=== PATIENT | female | born 1950 | race Caucasian/White ===

== ENCOUNTER 2017-07-01 10:15 | Observation (INO) ==
[2017-07-01] MEDS ORDERED: MECLIZINE 25 MG TABLET PO ONE (10:43)
[2017-07-01] MEDS ORDERED: NS 1,000 ML IV ONE (10:43)
[2017-07-01] MEDS ORDERED: ONDANSETRON 4 MG/2 ML INJECTION IVP ONE (10:43)
[2017-07-01] MEDS ORDERED: SALINE FLUSH 10ml SYRINGE IVF PRN (10:43)
--- NOTE | 2017-07-01 10:48 | Emergency Department Report ---
Dizziness HPI - General Chief Complaint: Dizziness Stated Complaint: dizzy/nausea Time Seen by Provider: 07/01/17 10:16 Source: patient Mode of arrival: ambulatory Limitations: no limitations - History of Present Illness HPI Narrative: Patient presents to emergency room today for evaluation of weakness, dizziness and nausea. Patient had a heart catheterization with stent placement on 06/12/[address] Wiggins. Since that time she had felt more short of breath and weak. She reports starting last 06/28. She has had onset of vertigo with nausea that has been severe in nature debilitating. She was seen by outpatient physical therapy and underwent Hallpike maneuver both and Sunday which cause symptoms to significantly worsen causing emesis. Today she fell. She was minimally improved, however, overall felt weak. Today she got up out of bed and continued to have weakness felt that she was can have a syncopal episode. She has been on 5 days of Lasix 40 milligrams daily for diuresis seen and questions if she is dehydrated. During all of this time. She has not had any episodes of chest pain but has had dizziness, shortness of breath and general fatigue. MD complaint: dizziness, lightheadedness Onset (ago): week(s) (3) Timing: gradual onset Description: lightheadedness, near-syncope History of similar episodes: No History of trauma: No Severity: moderate Relieving factors: rest Exacerbating factors: movement, position Associated symptoms: shortness of breath, nausea, vomiting - Related Data Home Medications Medication Instructions Recorded Confirmed Ascorbic Acid [Vitamin C] 500 mg PO DAILY #0 10/25/10 07/01/17 Infliximab [Remicade] 800 mg IV Q 4 WEEKS #0 10/25/10 07/01/17 Aspirin [Aspir 81] 81 mg PO HS #0 05/22/13 07/01/17 Ibuprofen [Motrin Ib] 400 mg PO Q4H PRN #0 05/22/13 07/01/17 Lisinopril/Hctz [Prinzide 1 tab PO DAILY #0 05/22/13 07/01/17] metHOTREXate sodium [Methotrexate] 15 mg PO WEEKLY #0 05/22/13 07/01/17 Atorvastatin [Lipitor] 5 mg PO HS 06/12/17 07/01/17 Fexofenadine/Pseudoephedrine 1 tab PO DAILY 06/12/17 07/01/17 [Irene-D 24 Hour Tablet] Fluoxetine HCl [Prozac] 40 mg PO DAILY 06/12/17 07/01/17 Metoprolol Tartrate [Lopressor] 25 mg PO BIDWM 06/12/17 07/01/17 Naproxen Sodium 440 mg PO HS 06/12/17 07/01/17 SUMAtriptan succinate [Sumatriptan 50 mg PO BID PRN 06/12/17 07/01/17 Succinate] Trazodone [Desyrel] 50 - 100 mg PO HS 06/12/17 07/01/17 Vitamin A 800 unit PO DAILY 06/12/17 07/01/17 Vitamin E 400 unit PO DAILY 06/12/17 07/01/17 Loperamide HCl/Simethicone 0.5 tab PO DAILY 06/19/17 07/01/17 [Imodium Multi-Symptom Rel Cplt] Cholecalciferol (Vitamin D3) 2,000 unit PO DAILY 07/01/17 07/01/17 [Vitamin D3] Folic Acid 0.8 mg PO DAILY 07/01/17 07/01/17 Naproxen Sodium [Aleve] 440 mg PO BID PRN 07/01/17 07/01/17 Vitamin B Complex Vit C No.4 150 mg PO DAILY 07/01/17 07/01/17 [Super B Complex] Previous Rx's Medication Instructions Recorded Ticagrelor [Brilinta] 90 mg PO Q12HR #180 tab 06/13/17 Allergies Allergy/AdvReac Type Severity Reaction Status Date / Time Sulfa (Sulfonamide Allergy Unknown Rash Verified 07/01/17 10:26 Antibiotics) amoxicillin [From Augmentin] Allergy Diarrhea Verified 07/01/17 10:26 clavulanic acid Allergy Diarrhea Verified 07/01/17 10:26 [From Augmentin] acetaminophen AdvReac Unknown HEADACHE Verified 07/01/17 10:26 codeine AdvReac Unknown Headache Verified 07/01/17 10:26 guaifenesin AdvReac Unknown Anxiety Verified 07/01/17 10:26 mirtazapine AdvReac Unknown Dizziness Verified 07/01/17 10:26 vortioxetine AdvReac Unknown Nausea Verified 07/01/17 10:26 pseudoephedrine HCl Allergy Unknown Uncoded 06/12/17 06:50 amoxicillin trihydrate AdvReac Unknown Uncoded 06/12/17 06:50 hydrocodone bit AdvReac Unknown HEADACHE Uncoded 06/12/17 06:50 potassium clavulanate AdvReac Unknown Uncoded 06/12/17 06:50 Review of Systems All systems: reviewed and negative except as stated Respiratory: Reports: other (feels short of breath) Gastrointestinal: Reports: nausea Neurological: Reports: weakness, vertigo PFSH Patient Stated Medical History Migraine Yes Hearing Loss bilat hearing aids Cardiac Arrhythmia Yes Hypertension Yes Bronchitis Yes Pneumonia Yes Hx Urinary Tract Infection Yes Other bladder repair Other Musculoskeletal rheumatoid arthritis Clostridium Difficile Yes Sepsis Yes Depression Yes Endometriosis Yes CAD wtih cardiac stent placement 06/12/17- Dr Wiggins Dyslipidemia. Irritable bowel syndrome. Rheumatoid arthritis Surgical History: Heart cath with cardiac stent placement-06/12/17-Dr. Wiggins. Total hysterectomy. Cholecystectomy. Abdominal lap 2. D&C. Right hip replacement-2010. Lumbar spinal fusion Family History: Mother had coronary artery disease Father-hypertension, of motor vehicle accident - Social History Smoking status: Former smoker Physical Exam - Limitations Limitations: no limitations - General General appearance: alert - Normal Exams: Head:: Normocephalic without trauma Eyes:: Pupils are PERRLA w/ EOMI, No scleral icterus, irritation, or foreign bodies noted Neck:: Full range of motion, without adenopathy Chest/Respirations:: Clear all estrada, with good airflow, and symmetry bilaterally Cardiovascular:: Regular rate and rhythm, without murmur or gallop Abdomen:: Bowel sounds positive, soft, non-tender, non-distended Lymphatic:: No lymphadenopathy Musculoskeletal:: No tenderness, good range of motion Integumentary:: No rashes Neurological:: Patient is alert, and oriented, cranial nerves, motor/sensory/ cerebellar Psychiatric:: Patient exhibits, appropriate attention, emotion and affect Course - Consultations Consultation #1: Sachin Time: 12:45 Vital Signs Temperature 97.8 F 07/01/17 10:27 Pulse Rate 84 07/01/17 10:27 Respiratory Rate 19 07/01/17 10:27 Blood Pressure 120/60 07/01/17 10:27 Pulse Oximetry 97 07/01/17 10:27 Temperature 97.8 F 07/01/17 10:27 Pulse Rate 78 07/01/17 11:05 Respiratory Rate 19 07/01/17 10:27 Blood Pressure 104/60 07/01/17 11:05 Pulse Oximetry 97 07/01/17 10:27 Dizziness - MDM Narrative Medical decision making narrative: 1230- CT results revele bilateral lower lobe pulmonary emboli 1245- Spoke with Hospitalist Dr Stephenson regarding hypokalemia, acute kidney injury, bilateral pulmonary emboli. She accepts patient for outpatient observation. Will initiate anticoagulation, Lovenox 1 milligram per kilogram subcutaneous 1 now. Given 1 liter of NS. #2 NS with potassium, potassium 40 meq PO while in ER. Plan discussed with patient and son. - Medical Records Attestation: I reviewed the patient's medical records. - Lab Data Attestation: I reviewed the patient's lab results. Result diagrams: 07/01/17 10:38 07/01/17 10:38 Lab Results 07/01/17 07/01/17 07/01/17 Range/Units 10:38 10:38 10:38 WBC 6.3 (4.5-11.0) T/MM3 RBC 4.39 (4.00-5.20) M/MM3 Hgb 14.7 (12-16) GM/DL Hct 42.8 (36-46) % MCV 97.5 (80-100) UM3 MCH 33.5 (26-34) UUG MCHC 34.3 (31-37) GM/DL RDW Std Deviation 41.9 (36.9-50.2) FL Plt Count 204 (130-400) T/MM3 MPV 10.6 (9.4-12.4) UM3 Neutrophils % (Manual) 41.0 (33-66) % Lymphocytes % (Manual) 38.0 (23-45) % Reactive Lymphs % 1.0 H (0-0) % Monocytes % (Manual) 15.0 H (0-9.0) % Eosinophils % (Manual) 5.0 H (0-4) % Neutrophils # (Manual) 2.6 (1.8-7.7) T/MM3 Lymphocytes # (Manual) 2.4 (1-4.8) T/MM3 Abs React Lymphs (Man) 0.1 H (0-0) T/MM3 Monocytes # (Manual) 0.9 H (0-0.8) T/MM3 Eosinophils # (Manual) 0.3 (0-0.5) T/MM3 RBC Morph Comment Normal D-Dimer 288 H (0-230) NG/ML Turbidity < 20 (0-20) Sodium 141 (134-144) MEQ/L Potassium 3.1 L (3.6-5) MEQ/L Chloride 95 L (98-107) MEQ/L Carbon Dioxide 32 H (22-30) MEQ/L Anion Gap 14 (5-15) MEQ/L BUN 44.0 H (7-17) MG/DL Creatinine 1.5 H (0.7-1.2) MG/DL GFR Calculation 35 BUN/Creatinine Ratio 29 H (6-26) RATIO Glucose 115 H (65-110) MG/DL Calculated Osmolality 283 H (261-280) MOSM/KG Calcium 9.9 (8.4-10.2) MG/DL Total Bilirubin 1.00 (0.20-1.30) MG/DL Icterus Index < 2 (0-7) AST 40 H (14-36) U/L ALT 58 H (9-52) U/L Alkaline Phosphatase 47 (38-126) U/L Troponin I < 0.012 (0-0.12) ng/ml Total Protein 7.6 (6.3-8.2) G/DL Albumin 4.4 (3.5-5.0) G/DL Globulin 3.2 (2.4-3.6) G/DL Albumin/Globulin Ratio 1.4 (1.1-2.2) RATIO Specimen Hemolysis < 15 (0-25) - Radiology Data Attestation: I reviewed the patient's radiology results. Bilateral lower lobe pulmonary emboli Disposition Disposition: [facility] [place] Condition: Stable Prescriptions: No Action metHOTREXate sodium [Methotrexate] 15 mg PO WEEKLY #0 Lisinopril/Hctz 20/25 [Prinzide 20/25] 1 tab PO DAILY #0 Aspirin [Aspir 81] 81 mg PO HS #0 Ibuprofen [Motrin Ib] 400 mg PO Q4H PRN #0 PRN Reason: pain Vitamin A 800 unit PO DAILY Trazodone [Desyrel] 50 - 100 mg PO HS Fluoxetine HCl [Prozac] 40 mg PO DAILY Metoprolol Tartrate [Lopressor] 25 mg PO BIDWM Atorvastatin [Lipitor] 5 mg PO HS Fexofenadine/Pseudoephedrine [Irene-D 24 Hour Tablet] 1 tab PO DAILY Ticagrelor [Brilinta] 90 mg PO Q12HR #180 tab Loperamide HCl/Simethicone [Imodium Multi-Symptom Rel Cplt] 0.5 tab PO DAILY Vitamin B Complex Vit C No.4 [Super B Complex] 150 mg PO DAILY Cholecalciferol (Vitamin D3) [Vitamin D3] 2,000 unit PO DAILY Naproxen Sodium [Aleve] 440 mg PO BID PRN PRN Reason: Pain Ascorbic Acid [Vitamin C] 500 mg PO DAILY #0 Infliximab [Remicade] 800 mg IV Q 4 WEEKS #0 Vitamin E 400 unit PO DAILY SUMAtriptan succinate [Sumatriptan Succinate] 50 mg PO BID PRN PRN Reason: Migraine Headache Naproxen Sodium 440 mg PO HS Folic Acid 0.8 mg PO DAILY Referrals: Sarmad Tan MD [Family Provider] - - Seen By: shravan
[2017-07-01] MEDS ORDERED: NS 100 ML ONE (11:38)
[2017-07-01] MEDS ORDERED: IOHEXOL 350mg/ml 75ml INJECTION ONE (11:38)
[2017-07-01] MEDS ORDERED: SALINE FLUSH 10ml SYRINGE ONE (11:38)
[2017-07-01] MEDS: POTASSIUM CHLORIDE INJ 10 MEQ in NS 1,000 ML IV SCH ×2 (12:46→14:01)
[2017-07-01] MEDS ORDERED: ENOXAPARIN 100 MG/ML INJECTION SQ ONE (12:54)
[2017-07-01] MEDS ORDERED: MECLIZINE 25 MG PO PRN (13:37)
[2017-07-01 13:38] VITALS: BMI 35.4
--- NOTE | 2017-07-01 13:44 | History & Physical Report ---
<Aline Meadows - Last Filed: 07/01/17 14:04> History of Present Illness Date: 07/01/17 Chief complaint: Dizziness HPI: HPI Narrative: (ED) Patient presents to emergency room today for evaluation of weakness, dizziness and nausea. Patient had a heart catheterization with stent placement on 06/12/[address] Wiggins. Since that time she had felt more short of breath and weak. She reports starting last 06/28. She has had onset of vertigo with nausea that has been severe in nature debilitating. She was seen by outpatient physical therapy and underwent Hallpike maneuver both and Sunday which cause symptoms to significantly worsen causing emesis. Today she fell. She was minimally improved, however, overall felt weak. Today she got up out of bed and continued to have weakness felt that she was can have a syncopal episode. She has been on 5 days of Lasix 40 milligrams daily for diuresis seen and questions if she is dehydrated. During all of this time. She has not had any episodes of chest pain but has had dizziness, shortness of breath and general fatigue. HPI Hospitalist: Nubia is a very pleasant 66 yo WF who recently underwent a heart cath with LAD stent placement. She reports that post the procedure, she felt more fatigued than normal, but attributed that to the procedure. She did develop worsening SOA, worse with activity. Upon return to work, she noticed that she did have some chest discomfort- she attributed that to being fatigued. On , she developed fairly severe vertigo while lying in bed. She has a prior history of vertigo, but never this severe. She was told in the past that she has plaque in a vessel at the back of her neck. During prior vertigo events, she visited PT with resolution of her symptoms. She decided to go to PT, and underwent treatment both and Sunday with worsening of her symptoms and vomiting. She has continued to feel SOA, dizzy, and overall NFW.She does report some mild posterior neck tension and tenderness, which has been present in the past and not worsened in severity. She did receive 5 days of Lasix due to symptoms, which made her feel worse as detailed above. Due to ongoing sx, she presented to the ED and was found to have bilateral PE. She reports that she has no prior history of DVT or PE. She does endorse some gait instability with the vertigo. Father has history of cerebellar dysfunction , and cerebellar bleed post MVA. She denies any estrogen supplementation or nutritional supplements for HRT. She is not a smoker. 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 Review of Systems All systems PM: 10-point ROS was reviewed, no additional remarkable complaints except - Constitutional Constitutional: Present: fatigue - EENMT Eyes: Absent: change in vision, loss of vision Balance: Present: vertigo, ataxia - Cardiovascular Cardiovascular: Present: chest pain, dyspnea on exertion, as per HPI. Absent: palpitations, edema Vascular: Absent: pedal edema, unilateral swelling - Respiratory Respiratory: Present: dyspnea, dyspnea on exertion. Absent: cough - Gastrointestinal Gastrointestinal: Present: diarrhea (IBS-D), other (Reports history of gastric ulcers). Absent: abdominal pain - Genitourinary Menstruation: post hysterectomy - Musculoskeletal Musculoskeletal: Absent: joint swelling, limited range of motion - Neurological Neurological: Present: dizziness, lack of coordination, vertigo. Absent: loss of vision, paresthesias, sensory deficit - Psychiatric Psychiatric: Present: depression PFSH CAD HTN Hyperlipidemia IBS-D (past [facility]) RA- Dr. Pozo Migraine Arrhythmia, NOS Remote hx of C.Diff (1998) Skin CA Depression- Dr. Ma Surgical History: Heart cath with cardiac stent placement-06/12/17-Dr. Wiggins. Total hysterectomy. Cholecystectomy. Abdominal lap 2. D&C. Right hip replacement-2010. Lumbar spinal fusion Family History: HTN, Early CAD - Social History Smoking status: Former smoker Substance use type: does not use Current occupational status: employed Current residence: Apartment/Private Home Medications Home Medications Medication Instructions Recorded Confirmed Type Ascorbic Acid [Vitamin C] 500 mg PO DAILY #0 10/25/10 07/01/17 History Infliximab [Remicade] 800 mg IV Q 4 WEEKS #0 10/25/10 07/01/17 History Aspirin [Aspir 81] 81 mg PO HS #0 05/22/13 07/01/17 History Ibuprofen [Motrin Ib] 400 mg PO Q4H PRN #0 05/22/13 07/01/17 History Lisinopril/Hctz [Prinzide 1 tab PO DAILY #0 05/22/13 07/01/17 History 2025] metHOTREXate sodium [Methotrexate] 15 mg PO WEEKLY #0 05/22/13 07/01/17 History Atorvastatin [Lipitor] 5 mg PO HS 06/12/17 07/01/17 History Fexofenadine/Pseudoephedrine 1 tab PO DAILY 06/12/17 07/01/17 History [Irene-D 24 Hour Tablet] Fluoxetine HCl [Prozac] 40 mg PO DAILY 06/12/17 07/01/17 History Metoprolol Tartrate [Lopressor] 25 mg PO BIDWM 06/12/17 07/01/17 History Naproxen Sodium 440 mg PO HS 06/12/17 07/01/17 History SUMAtriptan succinate [Sumatriptan 50 mg PO BID PRN 06/12/17 07/01/17 History Succinate] Trazodone [Desyrel] 50 - 100 mg PO HS 06/12/17 07/01/17 History Vitamin A 800 unit PO DAILY 06/12/17 07/01/17 History Vitamin E 400 unit PO DAILY 06/12/17 07/01/17 History Loperamide HCl/Simethicone 0.5 tab PO DAILY 06/19/17 07/01/17 History [Imodium Multi-Symptom Rel Cplt] Cholecalciferol (Vitamin D3) 2,000 unit PO DAILY 07/01/17 07/01/17 History [Vitamin D3] Folic Acid 0.8 mg PO DAILY 07/01/17 07/01/17 History Naproxen Sodium [Aleve] 440 mg PO BID PRN 07/01/17 07/01/17 History Vitamin B Complex Vit C No.4 150 mg PO DAILY 07/01/17 07/01/17 History [Super B Complex] Allergies Allergy/AdvReac Type Severity Reaction Status Date / Time Sulfa (Sulfonamide Allergy Unknown Rash Verified 07/01/17 10:26 Antibiotics) amoxicillin [From Augmentin] Allergy Diarrhea Verified 07/01/17 10:26 clavulanic acid Allergy Diarrhea Verified 07/01/17 10:26 [From Augmentin] acetaminophen AdvReac Unknown HEADACHE Verified 07/01/17 10:26 codeine AdvReac Unknown Headache Verified 07/01/17 10:26 guaifenesin AdvReac Unknown Anxiety Verified 07/01/17 10:26 mirtazapine AdvReac Unknown Dizziness Verified 07/01/17 10:26 vortioxetine AdvReac Unknown Nausea Verified 07/01/17 10:26 pseudoephedrine HCl Allergy Unknown Uncoded 06/12/17 06:50 amoxicillin trihydrate AdvReac Unknown Uncoded 06/12/17 06:50 hydrocodone bit AdvReac Unknown HEADACHE Uncoded 06/12/17 06:50 potassium clavulanate AdvReac Unknown Uncoded 06/12/17 06:50 Exam Vital Signs: Temperature 97.8 F 07/01/17 10:27 Pulse Rate 64 07/01/17 13:00 Respiratory Rate 16 07/01/17 13:00 Blood Pressure 143/62 H 07/01/17 13:00 Pulse Oximetry 99 07/01/17 13:00 Height/Weight/BMI: Height 1.65 m Weight 96.6 kg Body Mass Index 35.4 - Constitutional Present: no acute distress, well nourished, well developed, average body habitus , cooperative - Routine HEENT Exam Head: Present: normocephalic, atraumatic Eye: Present: EOMI, PERRL. Absent: conjunctival icterus, scleral injection ENT: Present: mucous membranes moist, dentition normal - Routine Neck Exam Present: supple, full ROM. Absent: JVD, tenderness - Routine Respiratory Exam Present: CTA bilaterally. Absent: dyspnea, decreased breath sounds, rales, rhonchi, wheezes, crackles, distant breath sounds - Routine Cardiovascular Exam Present: RRR, S1, S2, no murmur - Routine Abdominal Exam Present: soft, normoactive bowel sounds, non distended, non tender - Routine Extremities Exam Present: no edema, non tender, full ROM, pulses intact. Absent: calf tenderness , Brnet's sign, tenderness - Routine Skin Exam Present: intact, dry, warm - Routine Neurological Exam Present: alert, oriented X3, CN II-XII intact, moving all extremities, nystagmus (Very mild on EOM exam), normal speech. Absent: altered mental status , abnormal gait, facial asymmetry - Routine Psychiatric Exam Present: normal affect, normal thought process, cooperative, good insight, good judgment Results - Labs CBC & Chem 7: 07/01/17 10:38 07/01/17 10:38 - Impressions CTA- Bilateral PE - Imaging and Cardiology Venous US Status: pending Additional comments: Preliminary- clear bilaterally. Assessment and Plan (1) Bilateral pulmonary embolism Current visit: Yes Status: Acute (2) H/O heart artery stent Current visit: Yes Status: Acute (3) Acute onset of severe vertigo Current visit: Yes Status: Acute DVT Prophylaxis: Lovenox, Eliquis GI Prophylaxis: other (PPI) Assessment and Plan: PCP: Raghu Tan Assessment: Bilateral PE S/P LAD stenting Acute onset severe vertigo CAD HLD HTN Unspec. Arrhythmia RA IBS Plan: H&P 07/01/17 *PE Venous doppler negative. Assess CT head, Echo as well. Will need full anticoagulation- I did talk to patient about the risks of triple therapy. Continue Brilinta, ASA given recent stent. Least risk of GI bleeding is Eliquis- D/W pt- she is in agreement. We will add low dose PPI for GI protection, which she understands. Consult Dr. Wiggins in AM due to recent cath. Will need 3-6 mo therapy- first event. Provoked. No family hx of clots. *Severe vertigo Will need to R/O cerebellar stroke. Get CT of head. Hold off on CTA of head/neck given elevated SCr. May need to consider if sx continue. *Dehydration/VERN/Hypokalemia Replace K, IVF. Follow labs *RA/Chronic pain D/W pt that she needs to hold NSAIDs fish oil, Vitamin E given increase in bleeding risk. We may be able to try Tramadol if pain is an issue. *HTN- Continue Metoprolol. Hold COREY/HCTZ for now. Monitor BP, SCr. D/W Pt at length. questions answered. D/W RN as well. Chart reviewed at length. - Time spent with patient Time with patient PN: 50 minutes Hospital Course Summary Disclaimer: The visit summary below is not to be considered part of the above Progress Note. Hospital Course: 07/01/17 14:29 Assessment: Bilateral PE S/P LAD stenting Acute onset severe vertigo CAD HLD HTN Unspec. Arrhythmia RA IBS Plan: H&P 07/01/17 *PE Venous doppler negative. Assess CT head, Echo as well. Will need full anticoagulation- I did talk to patient about the risks of triple therapy. Continue Brilinta, ASA given recent stent. Least risk of GI bleeding is Eliquis- D/W pt- she is in agreement. We will add low dose PPI for GI protection, which she understands. Consult Dr. Wiggins in AM due to recent cath. Will need 3-6 mo therapy- first event. Provoked. No family hx of clots. *Severe vertigo Will need to R/O cerebellar stroke. Get CT of head. Hold off on CTA of head/neck given elevated SCr. May need to consider if sx continue. *Dehydration/VERN/Hypokalemia Replace K, IVF. Follow labs *RA/Chronic pain D/W pt that she needs to hold NSAIDs fish oil, Vitamin E given increase in bleeding risk. We may be able to try Tramadol if pain is an issue. *HTN- Continue Metoprolol. Hold COREY/HCTZ for now. Monitor BP, SCr. D/W Pt at length. questions answered. D/W RN as well. Chart reviewed at length. <Meredith Stephenson - Last Filed: 07/01/17 15:40> History of Present Illness Date: 07/01/17 Exam Vital Signs: Temperature 97.8 F 07/01/17 13:37 Pulse Rate 68 07/01/17 13:37 Respiratory Rate 16 07/01/17 13:37 Blood Pressure 122/66 07/01/17 13:37 Pulse Oximetry 99 07/01/17 13:37 Height/Weight/BMI: Height 1.65 m Weight 96.6 kg Body Mass Index 35.4 Results - Labs CBC & Chem 7: 07/01/17 10:38 07/01/17 10:38 Assessment and Plan (1) Bilateral pulmonary embolism Current visit: Yes Status: Acute (2) H/O heart artery stent Current visit: Yes Status: Acute (3) Acute onset of severe vertigo Current visit: Yes Status: Acute Resuscitation Status: Full Code Assessment and Plan: I have independently evaluated and examined this patient. I reviewed the chart, the patient's history, and the [employer]/PA's documented findings as above. We discussed and formulated the assessment and plan as above with additions as below: Ms. Salmeron describes progressively increasing dyspnea following cardiac catheterization. She has not experienced pleuritic pain nor hemoptysis and denies swelling or pain in her lower extremities. Symptoms were not relieved by trial of diuretics. Dizziness with vertigo began occurring 2-3 days ago as noted. Patient describes past history of vertigo on 1 occasion successfully treated with physical therapy. Her neck symptoms are well controlled. Examination reveals patient to be alert and in no distress Respirations are nonlabored, good airflow, breath sounds clear Regular cardiac rhythm, S1-S2 Extremities without edema, calf soft, no cords palpable CTA chest reviewed by myself-no infiltrates or focal pulmonary abnormality, PE bilaterally per radiology report Venous Doppler-negative for DVT Laboratory data notable for hemoconcentration (hemoglobin 14.7 from 13.3 06/13) and elevated BUN/creatinine (18-44, 0.9-1.5 respectively 06/13-today) with hypokalemia and minor transaminitis-latter consistent with methotrexate use. Anticoagulation options reviewed with Nubia; novel agent to be initiated as described above. Continue fluids and potassium replacement. Discussed with Tameka Zapata APRN, old record reviewed, imaging reviewed by myself. Hospital Course Summary Disclaimer: The visit summary below is not to be considered part of the above Progress Note.
[2017-07-01] MEDS: NS with KCL 20 mEq 1,000 ML IV SCH ×2 (13:53→23:49)
[2017-07-01] MEDS ORDERED: SUMATRIPTAN 25 MG TABLET PO PRN (15:28)
[2017-07-01] MEDS: TICAGRELOR 90 MG PO SCH (20:51)
[2017-07-01] MEDS ORDERED: ASPIRIN *EC* 81 MG TABLET PO SCH (21:00)
[2017-07-01] MEDS ORDERED: ATORVASTATIN 10 MG TABLET PO SCH (21:00)
[2017-07-01] MEDS ORDERED: TRAZODONE 50 MG PO PRN (21:00)
[2017-07-02] MEDS ORDERED: MORPHINE SULFATE 10 MG SYRINGE IV PRN (04:12)
[2017-07-02] MEDS ORDERED: OMEPRAZOLE 20 MG CAPSULE PO SCH (06:30)
[2017-07-02] MEDS ORDERED: MORPHINE SULFATE 2 MG SYRINGE IVP PRN (06:30)
--- NOTE | 2017-07-02 07:29 | Ultrasound Report ---
Indication: Known PE PROCEDURE: US venous doppler LE BI: Encounter: Initial Comparison: None Technique: Color Doppler duplex and grayscale sonographic imaging of both lower extremities was performed. Findings: There is no evidence for acute deep venous thrombosis in either thigh. Specifically, serial graded compression was performed from the inguinal ligament to the popliteal bifurcation, bilaterally, demonstrating appropriate compressibility of the deep venous system. In addition, color and pulsed Doppler demonstrate appropriate spontaneous flow, variation with respiration, and augmentation with calf compression. At the ankle, normal flow is identified in the posterior tibial veins; these vessels are also normal in caliber. Impression: No evidence of acute DVT in either lower limb. There is a preliminary report by [facility]. .
--- NOTE | 2017-07-02 07:30 | CT Scan Report ---
Indication: PE, R/O Stroke PROCEDURE: CT head/brain wo con: Encounter: Initial Comparison: February 02, 2014 Technique: Axial CT images through the head were performed without contrast. Iterative Reconstruction dose reducing technique was utilized. FINDINGS: The ventricles are of normal size, shape, and contour for the patient's age. There are scattered areas of low attenuation in the white matter which most likely represent changes from chronic microvascular ischemia. The brainstem, cerebellum, and cerebral hemispheres otherwise have a normal morphology and CT attenuation. There is no evidence of midline displacement. No hemorrhage, signs of acute territorial stroke, mass effect, mass lesions, or edema is evident. The visualized portions of the skull base, midface, and calvarium demonstrate no abnormality. The paranasal sinuses are well aerated and free of significant disease. Small right mastoid effusion. IMPRESSION: No acute intracranial abnormality or hemorrhage. There is a preliminary report by [facility]. .
[2017-07-02 08:20] VITALS: RESP 16
[2017-07-02] MEDS: TICAGRELOR 90 MG PO SCH (08:23)
[2017-07-02] MEDS ORDERED: APIXABAN 5 MG TABLET PO SCH (09:00)
[2017-07-02] MEDS ORDERED: NON-FORMULARY MEDICATION 1 EACH EACH (Fluoxetine Hcl [Prozac] 40 MG) PO SCH (09:00)
[2017-07-02] MEDS ORDERED: FLUOXETINE 40 MG PO SCH (09:00)
--- NOTE | 2017-07-02 09:07 | CT Scan Report ---
Indication: shortness of breath, elevated D-dimer PROCEDURE: CT angio pulm emboli: Encounter: Initial Comparison: None Technique: Axial CT pulmonary angiographic phase images were performed through the chest after the administration of intravenous contrast. Coronal and Sagittal MIP reconstructed images were created and reviewed. Automated Exposure Control and Iterative Reconstruction dose reducing techniques were utilized. Contrast: Omnipaque 350 74 mL Findings: Pulmonary arteries: Exam is diagnostic to the subsegmental pulmonary arterial level. There is segmental and subsegmental pulmonary embolus in the left lower lobe. There are also subsegmental emboli in the medial right lower lobe. Other findings: Mild degenerative atelectasis. No pneumothorax, pleural effusion or pneumonia. The central airways are patent. No axillary or mediastinal adenopathy. Heart size is normal. The upper abdomen shows no acute findings. Impression: Bilateral pulmonary emboli as above. There is a preliminary report by [facility]. .
--- NOTE | 2017-07-02 10:01 | Progress Note ---
<[place] - Last Filed: 07/02/17 09:58> Subjective: Patient is seen lying in her bed. She states that she is fatigued. She had some chest heaviness at 4 AM. An EKG was performed at that time showing no acute changes. She states she was not having significant pain, but took the morphine the tele-doctor had ordered and went back to sleep. She states she's had no further chest pain/heaviness. She is somewhat short of air when she is up and moving around. Occasionally when she is resting she will feel the need to take a deep breath. No further vomiting. She ate a good breakfast. She has had an echocardiogram, but results are still pending. We discussed the CT of her head was negative and labs look better today. Objective Vital signs: Temperature 97.7 F 07/02/17 00:00 Pulse Rate 71 07/02/17 08:19 Respiratory Rate 16 07/02/17 08:19 Blood Pressure 121/63 07/02/17 08:19 Pulse Oximetry 96 07/02/17 08:19 Height/Weight/BMI: Height 1.65 m Weight 97.4 kg Body Mass Index 35.4 - Constitutional Present: no acute distress, well nourished, well developed - Routine Respiratory Exam Present: CTA bilaterally. Absent: wheezes - Routine Cardiovascular Exam Present: RRR, S1, S2. Absent: murmur - Routine Abdominal Exam Present: soft, normoactive bowel sounds, non distended. Absent: tenderness - Routine Extremities Exam Present: no edema, normal capillary refill - Routine Skin Exam Present: dry, warm - Routine Neurological Exam Present: alert, oriented X3 - Routine Lymphatic Exam Lymphatic: Absent: adenopathy - Routine Psychiatric Exam Present: normal affect, normal thought process, cooperative Results - Labs CBC & Chem 7: 07/02/17 03:57 07/02/17 03:57 - Imaging and Cardiology Venous US Additional comments: Impression: No evidence of acute DVT in either lower limb. CT scan - head Additional comments: IMPRESSION: No acute intracranial abnormality or hemorrhage. CTA chest Additional comments: Findings: Pulmonary arteries: Exam is diagnostic to the subsegmental pulmonary arterial level. There is segmental and subsegmental pulmonary embolus in the left lower lobe. There are also subsegmental emboli in the medial right lower lobe. Other findings: Mild degenerative atelectasis. No pneumothorax, pleural effusion or pneumonia. The central airways are patent. No axillary or mediastinal adenopathy. Heart size is normal. The upper abdomen shows no acute findings. Impression: Bilateral pulmonary emboli as above. Assessment and Plan (1) Bilateral pulmonary embolism Current visit: Yes Status: Acute (2) H/O heart artery stent Current visit: Yes Status: Acute (3) Acute onset of severe vertigo Current visit: Yes Status: Acute Assessment and Plan: Assessment: Bilateral PE S/P LAD stenting Acute onset severe vertigo CAD HLD HTN Unspec. Arrhythmia RA IBS Plan: Check troponin given the chest heaviness she had at 4 AM. Will await recommendation of Dr. Wiggins. Continue IV fluids for now. If taking p.o. well, can DC later today. OK to hold COREY/HCTZ today yet as BP is stable. Continue Brillinta, Eliquis and ASA. Hospital Course Summary Disclaimer: The visit summary below is not to be considered part of the above Progress Note. Hospital Course: Assessment: Bilateral PE S/P LAD stenting Acute onset severe vertigo CAD HLD HTN Unspec. Arrhythmia RA IBS Plan: H&P 07/01/[address] Venous doppler negative. Assess CT head, Echo as well. Will need full anticoagulation- I did talk to patient about the risks of triple therapy. Continue Brilinta, ASA given recent stent. Least risk of GI bleeding is Eliquis- D/W pt- she is in agreement. We will add low dose PPI for GI protection, which she understands. Consult Dr. Wiggins in AM due to recent cath. Will need 3-6 mo therapy- first event. Provoked. No family hx of clots. Will need to R/O cerebellar stroke. Get CT of head. Hold off on CTA of head/neck given elevated SCr. May need to consider if sx continue. Replace K, IVF. Follow labs D/W pt that she needs to hold NSAIDs fish oil, Vitamin E given increase in bleeding risk. We may be able to try Tramadol if pain is an issue. Continue Metoprolol. Hold COREY/HCTZ for now. Monitor BP, SCr. 07/02/17 Check troponin given the chest heaviness she had at 4 AM. Will await recommendation of Dr. Wiggins. Continue IV fluids for now. If taking p.o. well, can DC later today. OK to hold COREY/HCTZ today yet as BP is stable. Continue Brillinta, Eliquis and ASA. <Meredith Stephenson - Last Filed: 07/02/17 13:30> Objective Vital signs: Temperature 97.7 F 07/02/17 00:00 Pulse Rate 71 07/02/17 08:19 Respiratory Rate 16 07/02/17 08:19 Blood Pressure 121/63 07/02/17 08:19 Pulse Oximetry 96 07/02/17 08:19 Height/Weight/BMI: Height 1.65 m Weight 97.4 kg Body Mass Index 35.4 Results - Labs CBC & Chem 7: 07/02/17 03:57 07/02/17 03:57 Assessment and Plan (1) Bilateral pulmonary embolism Current visit: Yes Status: Acute (2) H/O heart artery stent Current visit: Yes Status: Acute (3) Acute onset of severe vertigo Current visit: Yes Status: Chronic GI Prophylaxis: other (omeprazole) Resuscitation Status: Full Code Assessment and Plan: I have independently evaluated and examined this patient. I reviewed the chart, the patient's history, and the [employer] MAN/PA's documented findings as above. We discussed and formulated the assessment and plan as above with additions as below: Nubia describes pressure-like left precordial chest pain overnight as noted- she reports she has this intermittently and that sometimes it's on the right. Typically resolves after short period of time. No associated cardiac symptoms and she denies reflux/heartburn. No pleuritic pain today. NAD, alert Respirations nonlabored, good airflow, breath sounds clear Regular rhythm EKG reviewed by myself-sinus arrhythmia but no acute ST/T-wave changes Discussed with cardiology-echocardiogram pending Renal function/potassium have normalized Anticipate discharge later today barring further cardiac testing. Hospital Course Summary Disclaimer: The visit summary below is not to be considered part of the above Progress Note.
--- NOTE | 2017-07-02 12:51 | Cardiology Consult Note ---
History of Present Illness Consult date: 07/01/17 <Isamar Donaldson - 07/02/17 13:09> Requesting physician: Meredith Stephenson <Isamar Donaldson - 07/02/17 13:09> Chief complaint: dizziness <Isamar Donaldson - 07/02/17 13:09> History of present illness: Nubia is a 66 year old female who is well known to Dr. Wiggins who has a history of CAD with recent heart cath with LAD stent placement, PVCs, pulmonary hypertension, HTN and HLD. She reported that post procedure, she felt more fatigued than normal, but attributed that to the procedure. She did develop worsening SOA, worse with activity which she attributed to Brilinta (SOA is a known side effect which usually resolves the first week it is taken). Upon return to work, she noticed that she did have some chest discomfort- she attributed that to being fatigued. On , she developed fairly severe vertigo while lying in bed. She has a prior history of vertigo, but never this severe. She was told in the past that she has plaque in a vessel at the back of her neck. During prior vertigo events, she visited PT with resolution of her symptoms. She decided to go to PT, and underwent treatment both and Sunday with worsening of her symptoms and vomiting. She has continued to feel SOA, dizzy, and overall NFW. She does report some mild posterior neck tension and tenderness, which has been present in the past and not worsened in severity. She did receive 5 days of Lasix due to symptoms, which made her feel worse as detailed above. Due to ongoing sx, she presented to the ED and was found to have bilateral PE. She reports that she has no prior history of DVT or PE. She does endorse some gait instability with the vertigo. She denies any estrogen supplementation or nutritional supplements for HRT. She is not a smoker. 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 She is examined in her room on Medical. She denies fever, chills, sore throat, cough, N/V/D, or dysuria. <Isamar Donaldson - 07/02/17 13:09> Review of Systems - Constitutional Constitutional: Present: fatigue. Absent: chills, fever(s) <Isamar Donaldson 07/02/17 13:09> - EENMT Eyes: Absent: change in vision <Isamar Donaldson 07/02/17 13:09> Balance: Present: vertigo, ataxia <Isamar Donaldson 07/02/17 13:09> Mouth/Throat: Absent: sore throat <Isamar Donaldson 07/02/17 13:09> - Cardiovascular Cardiovascular: Present: chest pain, dyspnea on exertion. Absent: palpitations , syncope, edema <Isamar Donaldson 07/02/17 13:09> Vascular: Absent: pedal edema, unilateral swelling <Isamar Donaldson 07/02/17 13:09> - Respiratory Respiratory: Present: dyspnea. Absent: cough <Isamar Donaldson 07/02/17 13:09 > - Gastrointestinal Gastrointestinal: Absent: diarrhea, nausea, vomiting <Isamar Donaldson 13:09> - Genitourinary Genitourinary: Absent: dysuria <Isamar Donaldson 07/02/17 13:09> Menstruation: post hysterectomy <Isamar Donaldson 07/02/17 13:09> - Integumentary/Breasts Integumentary: Absent: rash <Isamar Donaldson 07/02/17 13:09> - Neurological Neurological: Absent: dizziness <Isamar Donaldson 07/02/17 13:09> - Endocrine Endocrine: Absent: palpitations <Isamar Donaldson 07/02/17 13:09> PFSH Patient Stated Medical History Migraine Yes Hearing Loss bilat hearing aids Cardiac Arrhythmia Yes: PVC Hypertension Yes Bronchitis Yes Pneumonia Yes Other GI Yes: IBS Hx Urinary Tract Infection Yes Other bladder repair Other Musculoskeletal rheumatoid arthritis Clostridium Difficile Yes: 2001 Sepsis Yes Depression Yes Endometriosis Yes <Germán Wiggins - 07/06/17 15:36> Patient Stated Medical History Migraine Yes Hearing Loss bilat hearing aids Cardiac Arrhythmia Yes: PVC Hypertension Yes Bronchitis Yes Pneumonia Yes Other GI Yes: IBS Hx Urinary Tract Infection Yes Other bladder repair Other Musculoskeletal rheumatoid arthritis Clostridium Difficile Yes: 2001 Sepsis Yes Depression Yes Endometriosis Yes <AnikaIsamar Cain 07/02/17 13:09> Surgical History: Heart cath with cardiac stent placement-06/12/17-Dr. Wiggins. Total hysterectomy. Cholecystectomy. Abdominal lap 2. D&C. Right hip replacement-2010. Lumbar spinal fusion <Isamar Donaldson - 07/02/17 13:09> Family History: Father - CVA, HTN, HLD. Brother - HTN Mother - Coronary stent Maternal grandmother - CVA, [place] Paternal grandfather - [place] <AnikaIsamar Cain 07/02/17 13:09> - Social History Smoking status: Never smoker <AnikaIsamar Payton 07/02/17 13:09> Substance use type: does not use <AnikaIsamar Payton 07/02/17 13:09> Alcohol intake frequency: holidays/special occasions only <AnikaIsamar Payton 13:09> Housing: house <Isamar Donaldson 07/02/17 13:09> Current occupational status: employed <Anika,Amy Payton 07/02/17 13:09> Current residence: Apartment/Private Home <AnikaIsamar souza Payton 07/02/17 13:09> Medications Home Medications Medication Instructions Recorded Confirmed Type Ascorbic Acid [Vitamin C] 500 mg PO DAILY #0 10/25/10 07/01/17 History Infliximab [Remicade] 800 mg IV Q 4 WEEKS #0 10/25/10 07/01/17 History Aspirin [Aspir 81] 81 mg PO HS #0 05/22/13 07/01/17 History Lisinopril/Hctz 20/25 [Prinzide 1 tab PO DAILY #0 05/22/13 07/01/17 History 20/25] metHOTREXate sodium [Methotrexate] 15 mg PO WEEKLY #0 05/22/13 07/01/17 History Atorvastatin [Lipitor] 5 mg PO HS 06/12/17 07/01/17 History Fexofenadine/Pseudoephedrine 1 tab PO DAILY 06/12/17 07/01/17 History [Irene-D 24 Hour Tablet] Fluoxetine HCl [Prozac] 40 mg PO DAILY 06/12/17 07/01/17 History Metoprolol Tartrate [Lopressor] 25 mg PO BIDWM 06/12/17 07/01/17 History SUMAtriptan succinate [Sumatriptan 50 mg PO BID PRN 06/12/17 07/01/17 History Succinate] Trazodone [Desyrel] 50 - 100 mg PO HS 06/12/17 07/01/17 History Vitamin A 800 unit PO DAILY 06/12/17 07/01/17 History Vitamin E 400 unit PO DAILY 06/12/17 07/01/17 History Loperamide HCl/Simethicone 0.5 tab PO DAILY 06/19/17 07/01/17 History [Imodium Multi-Symptom Rel Cplt] Cholecalciferol (Vitamin D3) 2,000 unit PO DAILY 07/01/17 07/01/17 History [Vitamin D3] Folic Acid 0.8 mg PO DAILY 07/01/17 07/01/17 History Vitamin B Complex Vit C No.4 150 mg PO DAILY 07/01/17 07/01/17 History [Super B Complex] <Germán Wiggins - 07/06/17 15:36> Allergies Allergy/AdvReac Type Severity Reaction Status Date / Time Sulfa (Sulfonamide Allergy Unknown Rash Verified 07/05/17 08:16 Antibiotics) amoxicillin [From Augmentin] Allergy Diarrhea Verified 07/05/17 08:16 clavulanic acid Allergy Diarrhea Verified 07/05/17 08:16 [From Augmentin] codeine AdvReac Unknown Headache, Verified 07/05/17 08:16 nausea mirtazapine AdvReac Unknown Dizziness Verified 07/05/17 08:16 vortioxetine AdvReac Unknown Nausea Verified 07/05/17 08:16 acetaminophen [From [place]] AdvReac headache, Verified 07/05/17 08:16 nausea guaifenesin [From Mucinex D] AdvReac lightheaded, Verified 07/05/17 08:16 "out of control feeling" hydrocodone [From [place]] AdvReac headache, Verified 07/05/17 08:16 nausea pseudoephedrine AdvReac lightheaded, Verified 07/05/17 08:16 [From Mucinex D] "out of control feeling" <Germán Wiggins - 07/06/17 15:36> Exam Vital signs: Temperature 97.8 F 07/02/17 15:03 Pulse Rate 63 07/02/17 15:03 Respiratory Rate 16 07/02/17 15:03 Blood Pressure 110/55 07/02/17 15:03 Pulse Oximetry 94 07/02/17 15:03 <Germán Wiggins - 07/06/17 15:36> Temperature 97.7 F 07/02/17 00:00 Pulse Rate 71 07/02/17 08:19 Respiratory Rate 16 07/02/17 08:19 Blood Pressure 121/63 07/02/17 08:19 Pulse Oximetry 96 07/02/17 08:19 <Isamar Donaldson [facility] 07/02/17 13:09> - Constitutional no acute distress, obese, cooperative <AnikaIsamar [facility] 07/02/17 13:09> - Routine HEENT Exam Head: Present: normocephalic <Isamar Donaldson [facility] 07/02/17 13:09> ENT: Present: mucous membranes moist <AnikaIsamar souza [facility] 07/02/17 13:09> - Routine Neck Exam Absent: JVD, carotid bruit <AnikaIsamar [facility] 07/02/17 13:09> - Routine Chest/Breast/Axilla Exam Chest wall: Absent: tenderness <AnikaIsamar souza [facility] 07/02/17 13:09> - Routine Respiratory Exam Present: CTA bilaterally. Absent: rales, wheezes <AnikaIsamar souza [facility] 07/02/17 13:09> - Routine Cardiovascular Exam Present: RRR. Absent: no murmur, JVD <Isamar Donaldson [facility] 07/02/17 13:09> - Routine Abdominal Exam Present: soft, normoactive bowel sounds <AnikaIsamar [facility] 07/02/17 13:09> - Routine Extremities Exam Present: no edema <AnikaIsamar souza [facility] 07/02/17 13:09> - Routine Skin Exam Present: intact, dry, warm <AnikaIsamar souza [facility] 07/02/17 13:09> - Routine Neurological Exam Present: alert, oriented X3 <Isamar Donaldson [facility] 07/02/17 13:09> - Routine Psychiatric Exam Present: normal affect, normal thought process <Isamar Donaldson [facility] 07/02/17 13: 09> Results 07/02/17 03:57 07/02/17 03:57 <Germán Wiggins - 07/06/17 15:36> Cardiac Enzymes 07/02/17 Range/Units 03:57 Troponin I < 0.012 (0-0.12) ng/ml CBC 07/02/17 Range/Units 03:57 WBC 5.5 (4.5-11.0) T/MM3 RBC 3.69 L (4.00-5.20) M/MM3 Hgb 12.3 D (12-16) GM/DL Hct 36.6 D (36-46) % Plt Count 171 (130-400) T/MM3 Neut # (Auto) 2.1 (1.8-7.7) T/MM3 Lymph # (Auto) 2.6 (1-4.8) T/MM3 [place] # (Auto) 0.5 (0-0.8) T/MM3 Eos # (Auto) 0.2 (0-0.5) T/MM3 Baso # (Auto) 0.0 (0-0.2) T/MM3 Comprehensive Metabolic Panel 07/02/17 Range/Units 03:57 Sodium 144 (134-144) MEQ/L Potassium 3.8 D (3.6-5) MEQ/L Chloride 108 H D (98-107) MEQ/L Carbon Dioxide 28 (22-30) MEQ/L BUN 28.0 H (7-17) MG/DL Creatinine 1.1 D (0.7-1.2) MG/DL Glucose 92 (65-110) MG/DL Calcium 9.2 (8.4-10.2) MG/DL Albumin 3.2 L (3.5-5.0) G/DL Intake and Output 07/01/17 07/02/17 07/02/17 22:59 06:59 14:59 Intake Total 240 / 240 993.333 / 993.333 240 / 240 Output Total 1000 / 1000 950 / 950 500 / 500 Balance -760 / -760 43.333 / 43.333 -260 / -260 Intake: IV 993.333 / 993.333 NS with KCL 20 mEq 1,000 993.333 / 993.333 ML @ 100 mls/hr IV .Q10H [facility] Rx#:[id number] Oral 240 / 240 240 / 240 Output: Urine 1000 / 1000 950 / 950 500 / 500 Other: Urine Appearance Clear Clear Clear Urine Color Yellow Yellow Yellow Urine Odor Normal Weight 214 lb 11.684 oz Patient Weight 07/03/17 06:59 Weight 214 lb 11.684 oz Laboratory Results - last 24 hr 07/01/17 07/02/17 07/02/17 10:38 03:57 03:57 WBC 5.5 RBC 3.69 L Hgb 12.3 D Hct 36.6 D MCV 99.2 MCH 33.3 MCHC 33.6 RDW Std Deviation 42.6 Plt Count 171 MPV 11.0 Immature Gran % (Auto) 0.0 Neut % (Auto) 38.4 Lymph % (Auto) 47.[address] [place] % (Auto) 9.6 H Eos % (Auto) 4.3 H Baso % (Auto) 0.4 Neut # (Auto) 2.1 Lymph # (Auto) 2.6 [place] # (Auto) 0.5 Eos # (Auto) 0.2 Baso # (Auto) 0.0 Abs Immat Gran (auto) 0.00 Turbidity < 20 Sodium 144 Potassium 3.8 D Chloride 108 H D Carbon Dioxide 28 Anion Gap 8 BUN 28.0 H Creatinine 1.1 D GFR Calculation 50 BUN/Creatinine Ratio 26 Glucose 92 Calculated Osmolality 283 H Calcium 9.2 Phosphorus 2.9 Magnesium 1.9 Icterus Index < 2 Troponin I Albumin 3.2 L Specimen Hemolysis < 15 07/02/17 03:57 WBC RBC Hgb Hct MCV MCH MCHC RDW Std Deviation Plt Count MPV Immature Gran % (Auto) Neut % (Auto) Lymph % (Auto) [place] % (Auto) Eos % (Auto) Baso % (Auto) Neut # (Auto) Lymph # (Auto) [place] # (Auto) Eos # (Auto) Baso # (Auto) Abs Immat Gran (auto) Turbidity Sodium Potassium Chloride Carbon Dioxide Anion Gap BUN Creatinine GFR Calculation BUN/Creatinine Ratio Glucose Calculated Osmolality Calcium Phosphorus Magnesium Icterus Index Troponin I < 0.012 Albumin Specimen Hemolysis < 15 <Isamar Donaldson - 07/02/17 13:09> - Imaging and Cardiology Echo: pending <Isamar Donaldson - 07/02/17 13:09> EKG results: image reviewed <Isamar Donaldson - 07/02/17 13:09> Imaging & Cardiology Narrative: Date of Exam: 07/01/17 Ordering Provider: Tameka Zapata APRN Type of Exam(s): CT angio pulm emboli Reason for Exam(s): shortness of breath, elevated D-dimer Indication: shortness of breath, elevated D-dimer PROCEDURE: CT angio pulm emboli: Encounter: Initial Comparison: None Technique: Axial CT pulmonary angiographic phase images were performed through the chest after the administration of intravenous contrast. Coronal and Sagittal MIP reconstructed images were created and reviewed. Automated Exposure Control and Iterative Reconstruction dose reducing techniques were utilized. Contrast: Omnipaque 350 74 mL Findings: Pulmonary arteries: Exam is diagnostic to the subsegmental pulmonary arterial level. There is segmental and subsegmental pulmonary embolus in the left lower lobe. There are also subsegmental emboli in the medial right lower lobe. Other findings: Mild degenerative atelectasis. No pneumothorax, pleural effusion or pneumonia. The central airways are patent. No axillary or mediastinal adenopathy. Heart size is normal. The upper abdomen shows no acute findings. Impression: Bilateral pulmonary emboli as above. There is a preliminary report by [employer]. Date of Exam: 07/01/17 Ordering Provider: Aline Meadows APRN Type of Exam(s): CT head/brain wo con Reason for Exam(s): PE, R/O Stroke Indication: PE, R/O Stroke PROCEDURE: CT head/brain wo con: Encounter: Initial Comparison: February 02, 2014 Technique: Axial CT images through the head were performed without contrast. Iterative Reconstruction dose reducing technique was utilized. FINDINGS: The ventricles are of normal size, shape, and contour for the patient's age. There are scattered areas of low attenuation in the white matter which most likely represent changes from chronic microvascular ischemia. The brainstem, cerebellum, and cerebral hemispheres otherwise have a normal morphology and CT attenuation. There is no evidence of midline displacement. No hemorrhage, signs of acute territorial stroke, mass effect, mass lesions, or edema is evident. The visualized portions of the skull base, midface, and calvarium demonstrate no abnormality. The paranasal sinuses are well aerated and free of significant disease. Small right mastoid effusion. IMPRESSION: No acute intracranial abnormality or hemorrhage. There is a preliminary report by [employer]. Date of Exam: 07/01/17 Ordering Provider: Aline Meadows APRN Type of Exam(s): US venous doppler LE BI Reason for Exam(s): Known PE Indication: Known PE PROCEDURE: US venous doppler LE BI: Encounter: Initial Comparison: None Technique: Color Doppler duplex and grayscale sonographic imaging of both lower extremities was performed. Findings: There is no evidence for acute deep venous thrombosis in either thigh. Specifically, serial graded compression was performed from the inguinal ligament to the popliteal bifurcation, bilaterally, demonstrating appropriate compressibility of the deep venous system. In addition, color and pulsed Doppler demonstrate appropriate spontaneous flow, variation with respiration, and augmentation with calf compression. At the ankle, normal flow is identified in the posterior tibial veins; these vessels are also normal in caliber. Impression: No evidence of acute DVT in either lower limb. There is a preliminary report by [facility]. <Isamar Donaldson - 07/02/17 13:09> EKG interpretations - Dysrhythmias Sinus rhythms and dysrhythmias: sinus rhythm <Isamar Donaldson - 07/02/17 13:09> Ventricular dysrhythmias: ventricular premature complexes <Isamar Donaldson - 13:09> Assessment and Plan - Attestation Attestation Narrative: 07/06/17 15:36 Recommendation After examining the patient I agree with the above assessment. I am involved in the formulation of the patient's plan of care. <Germán Wiggins - 07/06/17 15:36> - Assessment and Plan (1) Bilateral pulmonary embolism Status: Acute (2) H/O heart artery stent Status: Acute (3) Acute onset of severe vertigo Status: Chronic (4) Ventricular premature depolarization Status: Acute (5) Other secondary pulmonary hypertension Status: Acute (6) Essential (primary) hypertension Status: Acute (7) Mixed hyperlipidemia Status: Acute <Germán Wiggins - 07/06/17 15:36> (1) Bilateral pulmonary embolism Status: Acute - Segmental and subsegmental pulmonary embolus in the left lower lobe and subsegmental emboli in the medial right lower lobe. - V/S stable, on room air - Eliquis 10mg po BID for 1 week, then 5mg BID (2) H/O heart artery stent Status: Acute - Primary stent of LAD using a 3.0 x 8 mm drug-eluting Resolute [place] stent on . - Continue dual antiplatelet therapy with Brilinta 90mg BID and Aspirin 81mg daily. (3) Acute onset of severe vertigo Status: Acute Small right mastoid effusion seen on head CT. (4) Ventricular premature depolarization Status: Acute Continue Metoprolol 25mg po BID (5) Other secondary pulmonary hypertension Status: Acute (6) Essential (primary) hypertension Status: Acute Continue Metoprolol 25mg po BID, continue Lisinopril/ HCTZ (7) Mixed hyperlipidemia Status: Acute Continue Atorvastatin, PCP manages <AnikaIsamar Payton - 07/02/17 12:40> Hospital Course Summary Disclaimer: The visit summary below is not to be considered part of the above Progress Note. <Germán Wiggins - 07/06/17 15:36> The visit summary below is not to be considered part of the above Progress Note. <Isamar Donaldson - 07/02/17 13:09> Hospital Course: Assessment: Bilateral PE S/P LAD stenting Acute onset severe vertigo CAD HLD HTN Unspec. Arrhythmia RA IBS Plan: H&P 07/01/17 Venous doppler negative. Assess CT head, Echo as well. Will need full anticoagulation- I did talk to patient about the risks of triple therapy. Continue Brilinta, ASA given recent stent. Least risk of GI bleeding is Eliquis- D/W pt- she is in agreement. We will add low dose PPI for GI protection, which she understands. Consult Dr. Wiggins in AM due to recent cath. Will need 3-6 mo therapy- first event. Provoked. No family hx of clots. Will need to R/O cerebellar stroke. Get CT of head. Hold off on CTA of head/neck given elevated SCr. May need to consider if sx continue. Replace K, IVF. Follow labs D/W pt that she needs to hold NSAIDs fish oil, Vitamin E given increase in bleeding risk. We may be able to try Tramadol if pain is an issue. Continue Metoprolol. Hold COREY/HCTZ for now. Monitor BP, SCr. 07/02/17 Check troponin given the chest heaviness she had at 4 AM. Will await recommendation of Dr. Wiggins. Continue IV fluids for now. If taking p.o. well, can DC later today. OK to hold COREY/HCTZ today yet as BP is stable. Continue Brillinta, Eliquis and ASA. <sIamar Donaldson - 07/02/17 13:09>
[2017-07-02] MEDS ORDERED: INFLUENZA VAC High Dose 2017-18 (Fluzone HD*) (>=65yo) 0.5ml IM ONE (14:03)
[2017-07-02] MEDS: NS with KCL 20 mEq 1,000 ML IV SCH (14:45)
[2017-07-02] MEDS ORDERED: INFLUENZA VAC. INJ. ADMIN CHARGE INJ ONE (15:00)
[2017-07-02 15:05] VITALS: BP 110/55; PULSE 63; TEMP 97.8; O2SAT 94
--- NOTE | 2017-07-02 16:57 | Discharge Instructions ---
Discharge Plan - Med Rec/Dispo Referrals/Follow Up: Sarmad Tan MD [Family Provider] - [facility] Instructions: Pulmonary Embolism (GEN) Prescriptions: New Omeprazole [Prilosec] 20 mg PO ACB #30 cap Apixaban [Eliquis] 10 mg PO BID #12 tablet Apixaban [Eliquis] 5 mg PO BID #60 tab Meclizine [Antivert] 25 mg PO Q6H PRN tablet PRN Reason: dizziness Continue metHOTREXate sodium [Methotrexate] 15 mg PO WEEKLY #0 Lisinopril/Hctz 20/25 [Prinzide 20/25] 1 tab PO DAILY #0 Aspirin [Aspir 81] 81 mg PO HS #0 Vitamin A 800 unit PO DAILY Trazodone [Desyrel] 50 - 100 mg PO HS Fluoxetine HCl [Prozac] 40 mg PO DAILY Metoprolol Tartrate [Lopressor] 25 mg PO BIDWM Atorvastatin [Lipitor] 5 mg PO HS Fexofenadine/Pseudoephedrine [Irene-D 24 Hour Tablet] 1 tab PO DAILY Ticagrelor [Brilinta] 90 mg PO Q12HR #180 tab Loperamide HCl/Simethicone [Imodium Multi-Symptom Rel Cplt] 0.5 tab PO DAILY Vitamin B Complex Vit C No.4 [Super B Complex] 150 mg PO DAILY Cholecalciferol (Vitamin D3) [Vitamin D3] 2,000 unit PO DAILY Ascorbic Acid [Vitamin C] 500 mg PO DAILY #0 Infliximab [Remicade] 800 mg IV Q 4 WEEKS #0 Vitamin E 400 unit PO DAILY SUMAtriptan succinate [Sumatriptan Succinate] 50 mg PO BID PRN PRN Reason: Migraine Headache Folic Acid 0.8 mg PO DAILY Discontinued Ibuprofen [Motrin Ib] 400 mg PO Q4H PRN #0 PRN Reason: pain Naproxen Sodium [Aleve] 440 mg PO BID PRN PRN Reason: Pain Naproxen Sodium 440 mg PO HS Discharge Instructions/Outpatient Orders: Final Provider Discharge Instructions Location: Determined By Patient - Disposition 01 Discharged Home, Self-Care
--- NOTE | 2017-07-02 17:08 | Discharge Summary ---
Discharge Information Date of admission: 07/01/17 12:44 Anticipated date of discharge: 07/02/17 Attending Physician: Meredith Stephenson MD Primary care physician: Sarmad Tan MD Consults: Germán Wiggins - Discharge Diagnosis (1) Bilateral pulmonary embolism Status: Acute (2) H/O heart artery stent Status: Acute (3) Acute onset of severe vertigo Status: Chronic - Procedures Procedures: Echocardiogram - formal report pending at discharge, no significant abnormalities reported prior to discharge and PA pressure approximate 20. - Laboratory Labs: D-dimer 288 on admission, potassium 3.1, BUN 44, creatinine 1.5 on admission. 07/02/17 03:57 07/02/17 03:57 - Radiology Radiology: CTA of chest on 07/01/17: Pulmonary arteries: Exam is diagnostic to the subsegmental pulmonary arterial level. There is segmental and subsegmental pulmonary embolus in the left lower lobe. There are also subsegmental emboli in the medial right lower lobe. Other findings: Mild degenerative atelectasis. No pneumothorax, pleural effusion or pneumonia. The central airways are patent. No axillary or mediastinal adenopathy. Heart size is normal. The upper abdomen shows no acute findings. Impression: Bilateral pulmonary emboli as above. CT head without contrast on 07/01/17: No acute intracranial abnormality. Venous Doppler, bilateral on 07/01/17: No evidence of DVT in either lower extremity. History of Present Illness HPI: Nubia is a very pleasant 66 yo WF who recently underwent a heart cath with LAD stent placement. She reports that post the procedure, she felt more fatigued than normal, but attributed that to the procedure. She did develop worsening SOA, worse with activity. Upon return to work, she noticed that she did have some chest discomfort- she attributed that to being fatigued. On , she developed fairly severe vertigo while lying in bed. She has a prior history of vertigo, but never this severe. She was told in the past that she has plaque in a vessel at the back of her neck. During prior vertigo events, she visited PT with resolution of her symptoms. She decided to go to PT, and underwent treatment both and Sunday with worsening of her symptoms and vomiting. She has continued to feel SOA, dizzy, and overall NFW.She does report some mild posterior neck tension and tenderness, which has been present in the past and not worsened in severity. She did receive 5 days of Lasix due to symptoms, which made her feel worse as detailed above. Due to ongoing sx, she presented to the ED and was found to have bilateral PE. She reports that she has no prior history of DVT or PE. She does endorse some gait instability with the vertigo. Father has history of cerebellar dysfunction , and cerebellar bleed post MVA. She denies any estrogen supplementation or nutritional supplements for HRT. She is not a smoker. 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 Hospital Course This is a general summary of the patient's hospital course. For more details refer to the complete medical record. Hospital course: Assessment: Bilateral PE S/P LAD stenting Vertigo CAD HLD HTN Unspec. Arrhythmia RA IBS Hospital course: Mrs. Salmeron was hospitalized with bilateral PE but relatively total low clot burden. Anticoagulation options were reviewed with the patient and she elected to start a new oral agent. Lovenox was given on the date of admission with conversion to Eliquis on 07/02. Eliquis was favored due to lower bleeding risk profile as the patient will remain on Brilinta and aspirin for cardiac disease. There was no evidence of DVT. She had one episode of chest discomfort early in the morning 07/02 without EKG changes or bump in troponin. She felt this was musculoskeletal in origin and no further testing was planned. Patient was hemodynamically stable throughout the hospital course. Echocardiogram was reviewed by Dr. Wiggins and did not reveal any significant change from prior studies. Patient was stable or discharge on 07/02; she is asked to follow up with Dr. Tan in approximately 1 week for reassessment and with Dr. Wiggins as previously scheduled. Discharge Plan - Med Rec/Dispo Referrals/Follow Up: Sarmad Tan MD [Family Provider] - [facility] Instructions: Pulmonary Embolism (GEN) Prescriptions: New Omeprazole [Prilosec] 20 mg PO ACB #30 cap Apixaban [Eliquis] 10 mg PO BID #12 tablet Apixaban [Eliquis] 5 mg PO BID #60 tab Meclizine [Antivert] 25 mg PO Q6H PRN tablet PRN Reason: dizziness Continue metHOTREXate sodium [Methotrexate] 15 mg PO WEEKLY #0 Lisinopril/Hctz 20/25 [Prinzide 20/25] 1 tab PO DAILY #0 Aspirin [Aspir 81] 81 mg PO HS #0 Vitamin A 800 unit PO DAILY Trazodone [Desyrel] 50 - 100 mg PO HS Fluoxetine HCl [Prozac] 40 mg PO DAILY Metoprolol Tartrate [Lopressor] 25 mg PO BIDWM Atorvastatin [Lipitor] 5 mg PO HS Fexofenadine/Pseudoephedrine [Irene-D 24 Hour Tablet] 1 tab PO DAILY Ticagrelor [Brilinta] 90 mg PO Q12HR #180 tab Loperamide HCl/Simethicone [Imodium Multi-Symptom Rel Cplt] 0.5 tab PO DAILY Vitamin B Complex Vit C No.4 [Super B Complex] 150 mg PO DAILY Cholecalciferol (Vitamin D3) [Vitamin D3] 2,000 unit PO DAILY Ascorbic Acid [Vitamin C] 500 mg PO DAILY #0 Infliximab [Remicade] 800 mg IV Q 4 WEEKS #0 Vitamin E 400 unit PO DAILY SUMAtriptan succinate [Sumatriptan Succinate] 50 mg PO BID PRN PRN Reason: Migraine Headache Folic Acid 0.8 mg PO DAILY Discontinued Ibuprofen [Motrin Ib] 400 mg PO Q4H PRN #0 PRN Reason: pain Naproxen Sodium [Aleve] 440 mg PO BID PRN PRN Reason: Pain Naproxen Sodium 440 mg PO HS Discharge Instructions/Outpatient Orders: Final Provider Discharge Instructions Location: Determined By Patient - Disposition 01 Discharged Home, Self-Care
--- NOTE | 2017-07-03 13:46 | Echocardiogram ---
DATE OF PROCEDURE July 02, 2017 This is a two-dimensional echo with spectral Doppler, color-flow and M-mode. It was obtained in a patient with pulmonary embolism. Left atrial dimension is normal. Left ventricular end-diastolic dimension is normal. Left ventricular wall thickness is normal. LV systolic function is normal with ejection fraction of 55%. Right atrium is normal. Right ventricle is normal. Aortic root dimension is normal. Mitral valve is morphologically normal with mild mitral regurgitation. Aortic valve appears to be normal. Tricuspid valve shows mild tricuspid regurgitation with normal estimated pulmonary artery systolic pressure of 28. Pulmonary valve shows no pulmonary insufficiency. There is no pericardial effusion. IMPRESSION 1. Normal LV systolic function with ejection fraction of 55%. 2. Mild mitral regurgitation. 3. Mild tricuspid regurgitation with normal estimated pulmonary artery systolic pressure of 28. MTDD
== END 2017-07-02 17:35 | disposition home or self-care (01) ==
LOC: ED 10:15 → MED 10:15
PROVIDERS: ADMIT Internal Medicine; ATTEND Internal Medicine

== ENCOUNTER 2017-08-12 18:36 | Inpatient (IN) ==
--- NOTE | 2017-08-12 18:53 | Emergency Department Report ---
GI Bleed HPI - General Stated complaint: gi bleed Time Seen by Provider: 08/12/17 18:45 Source: patient Mode of arrival: ambulatory Limitations: no limitations - History of Present Illness HPI Narrative: Patient has had at least 3 dark tarry stools today, with occasional abdominal cramping. Patient has no nausea or vomiting, no watery diarrhea, and no irma blood. Patient is on Eliquis, baby aspirin daily, and Brilinta since CAD with stents and PE two months ago. Pt also has IBS and gets some bright blood occasionally. - Related Data Home Medications Medication Instructions Recorded Confirmed Ascorbic Acid [Vitamin C] 500 mg PO DAILY #0 10/25/10 08/12/17 Infliximab [Remicade] 800 mg IV Q 4 WEEKS #0 10/25/10 08/12/17 Aspirin [Aspir 81] 81 mg PO HS #0 05/22/13 08/12/17 Lisinopril/Hctz [Prinzide 1 tab PO DAILY #0 05/22/13 08/12/17] metHOTREXate sodium [Methotrexate] 15 mg PO WEEKLY #0 05/22/13 08/12/17 Atorvastatin [Lipitor] 5 mg PO HS 06/12/17 08/12/17 Fexofenadine/Pseudoephedrine 1 tab PO DAILY 06/12/17 08/12/17 [Irene-D 24 Hour Tablet] Fluoxetine HCl [Prozac] 40 mg PO DAILY 06/12/17 08/12/17 Metoprolol Tartrate [Lopressor] 25 mg PO BIDWM 06/12/17 08/12/17 SUMAtriptan succinate [Sumatriptan 50 mg PO BID PRN 06/12/17 08/12/17 Succinate] Trazodone [Desyrel] 50 - 100 mg PO HS 06/12/17 08/12/17 Vitamin A 800 unit PO DAILY 06/12/17 08/12/17 Vitamin E 400 unit PO DAILY 06/12/17 08/12/17 Loperamide HCl/Simethicone 0.5 tab PO DAILY 06/19/17 08/12/17 [Imodium Multi-Symptom Rel Cplt] Cholecalciferol (Vitamin D3) 2,000 unit PO DAILY 07/01/17 08/12/17 [Vitamin D3] Folic Acid 0.8 mg PO DAILY 07/01/17 08/12/17 Vitamin B Complex Vit C No.4 150 mg PO DAILY 07/01/17 08/12/17 [Super B Complex] Previous Rx's Medication Instructions Recorded Ticagrelor [Brilinta] 90 mg PO Q12HR #180 tab 06/13/17 Apixaban [Eliquis] 5 mg PO BID #60 tab 07/02/17 Meclizine [Antivert] 25 mg PO Q6H PRN tablet 07/02/17 Omeprazole [Prilosec] 20 mg PO ACB #30 cap 07/02/17 Allergies Allergy/AdvReac Type Severity Reaction Status Date / Time Sulfa (Sulfonamide Allergy Unknown Rash Verified 08/12/17 18:51 Antibiotics) amoxicillin [From Augmentin] Allergy Diarrhea Verified 08/12/17 18:51 clavulanic acid Allergy Diarrhea Verified 08/12/17 18:51 [From Augmentin] codeine AdvReac Unknown Headache, Verified 08/12/17 18:51 nausea mirtazapine AdvReac Unknown Dizziness Verified 08/12/17 18:51 vortioxetine AdvReac Unknown Nausea Verified 08/12/17 18:51 guaifenesin [From Mucinex D] AdvReac lightheaded, Verified 08/12/17 18:51 "out of control feeling" hydrocodone [From [place]] AdvReac headache, Verified 08/12/17 18:51 nausea pseudoephedrine AdvReac lightheaded, Verified 08/12/17 18:51 [From Mucinex D] "out of control feeling" Review of Systems All systems: reviewed and negative except as stated PFSH Patient Stated Medical History Migraine Yes Hearing Loss bilat hearing aids Cardiac Arrhythmia Yes: PVC Hypertension Yes Bronchitis Yes Pneumonia Yes Pulmonary Embolism Yes: BILAT Other GI Yes: IBS Hx Urinary Tract Infection Yes Other bladder repair Clotting Problems Yes: HX BILAT PE'S Other Musculoskeletal rheumatoid arthritis Clostridium Difficile Yes: 2001 Sepsis Yes Depression Yes Endometriosis Yes Clinic Medical History Bilateral pulmonary embolism (Acute Medical) Acute onset of severe vertigo (Chronic Medical) Ventricular premature depolarization (Acute Medical) Other secondary pulmonary hypertension (Acute Medical) Essential (primary) hypertension (Acute Medical) Mixed hyperlipidemia (Acute Medical) PUD Surgical History: Heart cath with cardiac stent placement-06/12/17-Dr. Wiggins. Total hysterectomy. Cholecystectomy. Abdominal lap 2. D&C. Right hip replacement-2011. Lumbar spinal fusion - Social History Smoking status: Never smoker Current residence: Apartment/Private Home Physical Exam - Limitations Limitations: no limitations - General General appearance: alert - Normal Exams: Head:: Normocephalic without trauma Eyes:: Pupils are PERRLA w/ EOMI, No scleral icterus, irritation, or foreign bodies noted ENMT:: No facial trauma, nasal exudates, pharyngeal erythema, or exudates are noted Neck:: Full range of motion, without adenopathy, JVD, bruits or thyromegaly Chest/Respirations:: Clear all estrada, with good airflow, and symmetry bilaterally Cardiovascular:: Regular rate and rhythm, without murmur or gallop, Pulses 2+ all extremities, capillary refill, <2 seconds all extremities Abdomen:: Bowel sounds positive, soft, non-tender, non-distended, no hepatosplenomegaly, masses or bruits noted Lymphatic:: No lymphadenopathy, or lymphedema noted Musculoskeletal:: No tenderness, or deformity noted, good range of motion, all extremities Integumentary:: No rashes, hives, or bruising noted, hair and nails, without abnormality Neurological:: Patient is alert, and oriented, cranial nerves, motor/sensory/ cerebellar, exams w/o gross deficits, to observation Psychiatric:: Patient exhibits, appropriate attention, emotion and affect - Rectal Exam Rectal exam: Present: normal inspection, normal rectal tone, heme (+) stool. Absent: decreased rectal tone, black stool, bloody stool, fecal impaction, hemorrhoids, mass, tenderness Course Vital Signs Temperature 98.2 F 08/12/17 18:36 Pulse Rate 76 08/12/17 18:36 Respiratory Rate 16 08/12/17 18:36 Blood Pressure 137/69 08/12/17 18:36 Pulse Oximetry 96 08/12/17 18:36 Temperature 98.2 F 08/12/17 18:36 Pulse Rate 76 08/12/17 18:36 Respiratory Rate 16 08/12/17 18:36 Blood Pressure 137/69 08/12/17 18:36 Pulse Oximetry 96 08/12/17 18:36 GI Bleed - MDM Narrative Medical decision making narrative: Patient given 1 L normal saline IV fluid bolus CBC - normal CMP - minimal liver enzyme elevation only Case is discussed with Dr. Karla, we will admit for observation, nothing by mouth tonight with IV fluids, and reevaluate lab with surgical consultation in the morning - Lab Data Result diagrams: 08/12/17 19:16 08/12/17 19:16 Lab Results 08/12/17 08/12/17 Range/Units 19:16 19:16 WBC 5.3 (4.5-11.0) T/MM3 RBC 3.76 L (4.00-5.20) M/MM3 Hgb 12.6 (12-16) GM/DL Hct 37.7 (36-46) % MCV 100.3 H (80-100) UM3 MCH 33.5 (26-34) UUG MCHC 33.4 (31-37) GM/DL RDW Std Deviation 46.8 (36.9-50.2) FL Plt Count 230 (130-400) T/MM3 MPV 10.0 (9.4-12.4) UM3 Immature Gran % (Auto) 0.0 (0.0-0.5) % Neut % (Auto) 50.7 (33-66) % Lymph % (Auto) 37.3 (23-45) % [place] % (Auto) 9.9 H (0-9.0) % Eos % (Auto) 1.7 (0-4) % Baso % (Auto) 0.4 (0-2) % Neut # (Auto) 2.7 (1.8-7.7) T/MM3 Lymph # (Auto) 2.0 (1-4.8) T/MM3 [place] # (Auto) 0.5 (0-0.8) T/MM3 Eos # (Auto) 0.1 (0-0.5) T/MM3 Baso # (Auto) 0.0 (0-0.2) T/MM3 Abs Immat Gran (auto) 0.00 (0.00-0.03) T/MM3 Turbidity < 20 (0-20) Sodium 141 (134-144) MEQ/L Potassium 3.5 L (3.6-5) MEQ/L Chloride 104 (98-107) MEQ/L Carbon Dioxide 27 (22-30) MEQ/L Anion Gap 10 (5-15) MEQ/L BUN 20.0 H (7-17) MG/DL Creatinine 1.1 (0.7-1.2) MG/DL GFR Calculation 49 BUN/Creatinine Ratio 18 (6-26) RATIO Glucose 101 (65-110) MG/DL Calculated Osmolality 274 (261-280) MOSM/KG Calcium 9.4 (8.4-10.2) MG/DL Total Bilirubin 0.40 (0.20-1.30) MG/DL Conjugated Bilirubin 0.00 (0.00-0.30) MG/DL Unconjugated Bilirubin 0.30 (0.00-1.1) MG/DL Icterus Index < 2 (0-7) AST 43 H (14-36) U/L ALT 68 H (9-52) U/L Alkaline Phosphatase 43 (38-126) U/L Total Protein 7.3 (6.3-8.2) G/DL Albumin 4.2 (3.5-5.0) G/DL Globulin 3.1 (2.4-3.6) G/DL Albumin/Globulin Ratio 1.4 (1.1-2.2) RATIO Specimen Hemolysis < 15 (0-25) Disposition Clinical Impression: Upper GI bleed Disposition: To [facility] Condition: Improved Prescriptions: No Action metHOTREXate sodium [Methotrexate] 15 mg PO WEEKLY #0 Lisinopril/Hctz 20/25 [Prinzide 20/25] 1 tab PO DAILY #0 Aspirin [Aspir 81] 81 mg PO HS #0 Vitamin A 800 unit PO DAILY Trazodone [Desyrel] 50 - 100 mg PO HS Fluoxetine HCl [Prozac] 40 mg PO DAILY Metoprolol Tartrate [Lopressor] 25 mg PO BIDWM Atorvastatin [Lipitor] 5 mg PO HS Fexofenadine/Pseudoephedrine [Irene-D 24 Hour Tablet] 1 tab PO DAILY Ticagrelor [Brilinta] 90 mg PO Q12HR #180 tab Loperamide HCl/Simethicone [Imodium Multi-Symptom Rel Cplt] 0.5 tab PO DAILY Vitamin B Complex Vit C No.4 [Super B Complex] 150 mg PO DAILY Cholecalciferol (Vitamin D3) [Vitamin D3] 2,000 unit PO DAILY Omeprazole [Prilosec] 20 mg PO ACB #30 cap Ascorbic Acid [Vitamin C] 500 mg PO DAILY #0 Infliximab [Remicade] 800 mg IV Q 4 WEEKS #0 Vitamin E 400 unit PO DAILY SUMAtriptan succinate [Sumatriptan Succinate] 50 mg PO BID PRN PRN Reason: Migraine Headache Folic Acid 0.8 mg PO DAILY Apixaban [Eliquis] 5 mg PO BID #60 tab Meclizine [Antivert] 25 mg PO Q6H PRN tablet PRN Reason: dizziness Referrals: Sarmad Tan MD [Family Provider] - - Seen By: physician
[2017-08-12] MEDS: SALINE FLUSH 10ml SYRINGE IVF PRN (19:33)
[2017-08-12] MEDS: NS 1,000 ML IV SCH (20:43)
--- NOTE | 2017-08-12 20:45 | History & Physical Report ---
History of Present Illness Date: 08/13/17 Chief complaint: melena HPI: Very pleasant 67-year-old white female who presents to room with 3 episodes of tarry stools since this morning. She has been on brilinta and aspirin for 2 months for ACS/DEBBIE placed x 2, then on apixaban 2 weeks after for bilateral pulmonary emboli with low clot burden. She denies abdominal pain but did have some cramping w stools. She denies n/v/f/c/cp/soa. She does have a history of peptic ulcer disease 20 years prior, has been on Prilosec 20 mg qam 30 min ac since on triple therapy. She continues to take MTX and Remicade for her MS. She has history of IBS and has had colonoscopy [address] Norton in [place] "small ulcers throughout" Review of Systems All systems PM: 10-point ROS was reviewed, no additional remarkable complaints except PFSH Patient Stated Medical History Migraine Yes Hearing Loss bilat hearing aids Cardiac Arrhythmia Yes: PVC Hypertension Yes Bronchitis Yes Pneumonia Yes Pulmonary Embolism Yes: BILAT Other GI Yes: IBS Hx Urinary Tract Infection Yes Other bladder repair Clotting Problems Yes: HX BILAT PE'S Other Musculoskeletal rheumatoid arthritis Clostridium Difficile Yes: 2001 Sepsis Yes Depression Yes Endometriosis Yes Clinic Medical History Bilateral pulmonary embolism (Acute Medical) Acute onset of severe vertigo (Chronic Medical) Ventricular premature depolarization (Acute Medical) Other secondary pulmonary hypertension (Acute Medical) Essential (primary) hypertension (Acute Medical) Mixed hyperlipidemia (Acute Medical) Upper GI bleed (Acute Medical) Surgical History: Heart cath with cardiac stent placement-06/12/17-Dr. Wiggins. Total hysterectomy. Cholecystectomy. Abdominal lap 2. D&C. Right hip replacement-2010. 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 Current residence: Apartment/Private Home Medications Home Medications Medication Instructions Recorded Confirmed Type Ascorbic Acid [Vitamin C] 500 mg PO DAILY #0 10/25/10 08/12/17 History Infliximab [Remicade] 800 mg IV Q 4 WEEKS #0 10/25/10 08/12/17 History Aspirin [Aspir 81] 81 mg PO HS #0 05/22/13 08/12/17 History Lisinopril/Hctz [Prinzide 1 tab PO DAILY #0 05/22/13 08/12/17 History 20/25] metHOTREXate sodium [Methotrexate] 15 mg PO WEEKLY #0 05/22/13 08/12/17 History Atorvastatin [Lipitor] 5 mg PO HS 06/12/17 08/12/17 History Fexofenadine/Pseudoephedrine 1 tab PO DAILY 06/12/17 08/12/17 History [Irene-D 24 Hour Tablet] Fluoxetine HCl [Prozac] 40 mg PO DAILY 06/12/17 08/12/17 History Metoprolol Tartrate [Lopressor] 25 mg PO BIDWM 06/12/17 08/12/17 History SUMAtriptan succinate [Sumatriptan 50 mg PO BID PRN 06/12/17 08/12/17 History Succinate] Trazodone [Desyrel] 50 - 100 mg PO HS 06/12/17 08/12/17 History Vitamin A 800 unit PO DAILY 06/12/17 08/12/17 History Vitamin E 400 unit PO DAILY 06/12/17 08/12/17 History Loperamide HCl/Simethicone 0.5 tab PO DAILY 06/19/17 08/12/17 History [Imodium Multi-Symptom Rel Cplt] Cholecalciferol (Vitamin D3) 2,000 unit PO DAILY 07/01/17 08/12/17 History [Vitamin D3] Folic Acid 0.8 mg PO DAILY 07/01/17 08/12/17 History Vitamin B Complex Vit C No.4 150 mg PO DAILY 07/01/17 08/12/17 History [Super B Complex] Allergies Allergy/AdvReac Type Severity Reaction Status Date / Time Sulfa (Sulfonamide Allergy Unknown Rash Verified 08/12/17 23:52 Antibiotics) amoxicillin [From Augmentin] Allergy Diarrhea Verified 08/12/17 23:52 clavulanic acid Allergy Diarrhea Verified 08/12/17 23:52 [From Augmentin] codeine AdvReac Unknown Headache, Verified 08/12/17 23:52 nausea mirtazapine AdvReac Unknown Dizziness Verified 08/12/17 23:52 vortioxetine AdvReac Unknown Nausea Verified 08/12/17 23:52 guaifenesin [From Mucinex D] AdvReac lightheaded, Verified 08/12/17 23:52 "out of control feeling" hydrocodone [From [place]] AdvReac headache, Verified 08/12/17 23:52 nausea pseudoephedrine AdvReac lightheaded, Verified 08/12/17 23:52 [From Mucinex D] "out of control feeling" Exam Vital Signs: Temperature 98.2 F 08/12/17 18:36 Pulse Rate 69 08/12/17 20:36 Respiratory Rate 16 08/12/17 18:36 Blood Pressure 115/71 08/12/17 20:36 Pulse Oximetry 98 08/12/17 20:36 Height/Weight/BMI: Height 1.65 m Weight 93.128 kg - Constitutional Present: no acute distress - Routine HEENT Exam Head: Present: normocephalic Eye: Present: EOMI - Routine Respiratory Exam Present: CTA bilaterally. Absent: accessory muscle use - Routine Cardiovascular Exam Present: RRR, S1, S2, no murmur - Routine Abdominal Exam Present: soft, normoactive bowel sounds, non distended, non tender - Routine Rectal Exam Comments: heme pos per ER - Routine Skin Exam Present: intact - Routine Neurological Exam Present: alert, oriented X3 - Routine Psychiatric Exam Present: normal affect Results - Labs CBC & Chem 7: 08/13/17 09:06 08/13/17 09:06 Assessment and Plan (1) Gastrointestinal hemorrhage with melena Current visit: Yes Status: Acute (2) Bilateral pulmonary embolism Current visit: No Status: Acute (3) H/O heart artery stent Current visit: No Status: Acute (4) Other secondary pulmonary hypertension Current visit: No Status: Acute (5) Essential (primary) hypertension Current visit: No Status: Acute (6) Mixed hyperlipidemia Current visit: No Status: Acute (7) Rheumatoid arthritis Current visit: Yes Status: Acute Assessment and Plan: Fortunately Ms. Salmeron is hemodynamically stable and her hemoglobin appears stable compared to previous ones, however she is at high risk for complications if she is in fact bleeding internally. She is in a position where it's unsafe to stop her aspirin and Balint with the recent drug-eluting stent placement. It may be less dangerous to hold her Eliquis with a relatively low clot burden from the bilateral pulmonary emboli, but she would warrant serious consideration of vena cava filter versus holding for a short time and continuing. She needs a semiurgent GI evaluation in case there is a large ulcer that is present w visible vessel etc versus other source of blood loss. We'll admit her for observation, and repeat blood work in the morning. We'll keep her nothing by mouth after midnight for hopeful upper endoscopy within the next 12-24 hours. IV protonix started. Hernandez Have independently interviewed and examined patient. Chart reviewed. Reviewed above note and concur. CC: Dark, tarry stools HPI: 67 yo female on ASA, Brilinta, and Eliquis presents to ED evening of secondary to passing dark, tarry stools. Has stools that morning-very dark and tarry. Notes some ab cramping. No nausea or dyspepsia. Appetite with decrease. Pass another stool, also dark. When went to son's house, had episode of fecal incontinence with dark black stool and some red spots. Does not use NSAID. No ETOH use. Not having chest pressure, pain, or palpitations. Still undergoing cardiac rehab. No increased edema. Breathing stable-not with increased cough or congestion. Evaluated in ED. Stool positive for occult blood. PHMx: Bilateral PE 07/01/17, CAD with stent placement, HTN, HDL, Irritable bowel- diarrhea, RA, Depression SxHx: Hyst, Cholecystomy, Left hip replacement, Lumbar spine fusion Allergies and Meds - see MAR SHx: Lives independently. Pet dog. No ETOH. Non smoker. Michael for PCP. Feliciano for cardiac care. FHx: Early CAD. HTN ROS: as in HPI. Remainder of 10 point ROS discussed and negative. Exam GEN: [id number] awake and alert HEENT: NC/AT PERRLA EOMI MMM Neck: midline, supple, no tracheal deviation CV: regular without murmur Lungs: clear bilaterally. No crackles or wheezes. No distress on RA. AB: soft obese nt/nd +BS. EXT: No c/c. +1 edema Pulses intact Neuro: CN II-XII intact. No focal deficits. Psych: awake alert appropriate. Thoughts linear SKIN: warm and dry Assessment Acute GI bleed with melena Anticoagulation with ASA, Brilinta, and Eliquis Recent Bilateral PE CAD with stent placement HTN HDL RA Irritable Bowel syndrome-diarrhea Obesity with BMI 34.[address] in OBS for monitoring of GI bleed. NPO for bowel rest and potential endoscopic procedures. Will type and screen due to worry of worsening anemia secondary to GI Bleeding. Consult Dr Vu for surgical evaluation for potential endoscopy. Will hold on ASA, Brilinta, and Eliquis due to concern for acute GI blood loss. Monitor hemoglobin. IVF for support as patient NPO. SCD for DVT prevention as holding Eliquis. Full code as per her requests. Care to return to Dr Tan at time of discharge from [facility]. DVT Prophylaxis: SCD's, Eliquis GI Prophylaxis: Protonix Resuscitation Status: Full Code Hospital Course Summary Disclaimer: The visit summary below is not to be considered part of the above Progress Note. Hospital Course: 08/12 OBS Admission Assessment Acute GI bleed with melena Anticoagulation with ASA, Brilinta, and Eliquis Recent Bilateral PE CAD with stent placement HTN HDL RA Irritable Bowel syndrome-diarrhea Obesity with BMI 34.1 Fortunately Ms. Salmeron is hemodynamically stable and her hemoglobin appears stable compared to previous ones, however she is at high risk for complications if she is in fact bleeding internally. She is in a position where it's unsafe to stop her aspirin and Balint with the recent drug-eluting stent placement. It may be less dangerous to hold her Eliquis with a relatively low clot burden from the bilateral pulmonary emboli, but she would warrant serious consideration of vena cava filter versus holding for a short time and continuing. She needs a semiurgent GI evaluation in case there is a large ulcer that is present w visible vessel etc versus other source of blood loss. We'll admit her for observation, and repeat blood work in the morning. We'll keep her nothing by mouth after midnight for hopeful upper endoscopy within the next 12-24 hours. IV Protonix started. 08/13/[address] Vu for surgical evaluation for potential endoscopy. Will hold on ASA, Brilinta, and Eliquis due to concern for acute GI blood loss. Monitor hemoglobin. Type and screen due to concern for worsening anemia SCD for DVT prevention as holding Eliquis.
[2017-08-12] MEDS: PANTOPRAZOLE 40 MG INJECTION IVP SCH (21:06)
[2017-08-12 21:35] VITALS: BMI 34.0
[2017-08-12] MEDS: TRAZODONE 50 MG TABLET PO PRN (22:51)
[2017-08-13] MEDS: NS 1,000 ML IV SCH ×3 (04:01→22:34)
[2017-08-13] MEDS: PANTOPRAZOLE 40 MG INJECTION IVP SCH ×2 (11:18→22:34)
--- NOTE | 2017-08-13 11:22 | General Surgery Consult Note ---
Consult date: 08/13/17 Attending Physician: Jenaro Ng MD Reason for consult: endoscopy (tarry stools) PFSH Patient Stated Medical History Migraine Yes Hearing Loss bilat hearing aids Cardiac Arrhythmia Yes: PVC Hypertension Yes Bronchitis Yes Pneumonia Yes Pulmonary Embolism Yes: BILAT IBS Hx Urinary Tract Infection Yes Clotting Problems Yes: HX BILAT PE'S Other Musculoskeletal rheumatoid arthritis Clostridium Difficile Yes: 2002 Sepsis Yes Depression Yes Endometriosis Yes MS Clinic Medical History Bilateral pulmonary embolism (Acute Medical) Acute onset of severe vertigo (Chronic Medical) Ventricular premature depolarization (Acute Medical) Other secondary pulmonary hypertension (Acute Medical) Essential (primary) hypertension (Acute Medical) Mixed hyperlipidemia (Acute Medical) Upper GI bleed (Acute Medical) Gastrointestinal hemorrhage with melena (Acute Medical) Rheumatoid arthritis (Acute Medical) Surgical History: Heart cath with cardiac stent to LAD placement-06/12/17-Dr. Wiggins. Total hysterectomy. Cholecystectomy. Abdominal lap 2. D&C. Right hip replacement-2010. Lumbar spinal fusion - 2010. Colonoscopy Dr. Dexter 2012. EGD Dr. Dexter 2012 "small esophageal ulcerations" per patient. 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 Current residence: Apartment/Private Home Medications Home Medications Medication Instructions Recorded Confirmed Type Ascorbic Acid [Vitamin C] 500 mg PO DAILY #0 10/25/10 08/12/17 History Infliximab [Remicade] 800 mg IV Q 4 WEEKS #0 10/25/10 08/12/17 History Aspirin [Aspir 81] 81 mg PO HS #0 05/22/13 08/12/17 History Lisinopril/Hctz [Prinzide 1 tab PO DAILY #0 05/22/13 08/12/17 History 2025] metHOTREXate sodium [Methotrexate] 15 mg PO WEEKLY #0 05/22/13 08/12/17 History Atorvastatin [Lipitor] 5 mg PO HS 06/12/17 08/12/17 History Fexofenadine/Pseudoephedrine 1 tab PO DAILY 06/12/17 08/12/17 History [Irene-D 24 Hour Tablet] Fluoxetine HCl [Prozac] 40 mg PO DAILY 06/12/17 08/12/17 History Metoprolol Tartrate [Lopressor] 25 mg PO BIDWM 06/12/17 08/12/17 History SUMAtriptan succinate [Sumatriptan 50 mg PO BID PRN 06/12/17 08/12/17 History Succinate] Trazodone [Desyrel] 50 - 100 mg PO HS 06/12/17 08/12/17 History Vitamin A 800 unit PO DAILY 06/12/17 08/12/17 History Vitamin E 400 unit PO DAILY 06/12/17 08/12/17 History Loperamide HCl/Simethicone 0.5 tab PO DAILY 06/19/17 08/12/17 History [Imodium Multi-Symptom Rel Cplt] Cholecalciferol (Vitamin D3) 2,000 unit PO DAILY 07/01/17 08/12/17 History [Vitamin D3] Folic Acid 0.8 mg PO DAILY 07/01/17 08/12/17 History Vitamin B Complex Vit C No.4 150 mg PO DAILY 07/01/17 08/12/17 History [Super B Complex] Allergies Allergy/AdvReac Type Severity Reaction Status Date / Time Sulfa (Sulfonamide Allergy Unknown Rash Verified 08/12/17 23:52 Antibiotics) amoxicillin [From Augmentin] Allergy Diarrhea Verified 08/12/17 23:52 clavulanic acid Allergy Diarrhea Verified 08/12/17 23:52 [From Augmentin] codeine AdvReac Unknown Headache, Verified 08/12/17 23:52 nausea mirtazapine AdvReac Unknown Dizziness Verified 08/12/17 23:52 vortioxetine AdvReac Unknown Nausea Verified 08/12/17 23:52 guaifenesin [From Mucinex D] AdvReac lightheaded, Verified 08/12/17 23:52 "out of control feeling" hydrocodone [From [place]] AdvReac headache, Verified 08/12/17 23:52 nausea pseudoephedrine AdvReac lightheaded, Verified 08/12/17 23:52 [From Mucinex D] "out of control feeling" Review of Systems 10-point ROS: negative except for HPI and the following: - Eyes/Ears/Nose/Throat Ear Nose Throat: Present: hearing problems (bilateral hearing aids) - Cardiovascular Cardiovascular: Present: other (Heart Cath with Stent to LAD 06/12/2017) - Gastrointestinal Gastrointestinal: Present: blood in stools (tarry stools, not red blood) - Neurological Neurological: Present: muscle weakness (MS) - Psychiatric Psychiatric: Present: depression - Hematologic/Lymphatic Hematologic/Lymphatic: Present: easy bruising, history of blood clots/DVT/PE ( Edu PE), use of blood thinners - Vital Signs Last Vital Signs Temp 96.5 F L 08/13/17 07:28 Pulse 77 08/13/17 07:28 Resp 16 08/13/17 07:28 BP 113/62 08/13/17 07:28 Pulse Ox 96 08/13/17 07:28 - Laboratory Result Diagrams: 08/13/17 09:06 08/13/17 09:06 General Surgery Results - Results Labs: 08/13/17 09:06 08/13/17 09:06 Hospital Course Summary Disclaimer: The visit summary below is not to be considered part of the above Progress Note.
[2017-08-13] MEDS ORDERED: FLEET PHOSPHO - SODA ENEMA 133ml PR PRN (12:11)
[2017-08-13] MEDS ORDERED: Bisacodyl EC TAB 5 MG TABLET PO ONE (13:30)
[2017-08-13] MEDS ORDERED: POLYETHYL. GLYCOL 3350 BOTTLE 238 GM PO ONE (15:30)
--- NOTE | 2017-08-13 17:07 | Consultation ---
DATE OF CONSULTATION 08/13/2017 FINDINGS Mrs. Salmeron is a 67-year-old female whom I was asked to see today as a result of her history for melanotic stools. Patient informs me that she has had a "lot of health issues recently". Patient informs me that in June of this year she had underwent a stress test and was found to have an area of ischemia. She subsequently underwent a heart catheterization and was found to have "80% blockage of her LAD". Drug eluting stent was placed at that time. Patient states that following her heart catheterization and placement of a stent she was fairly short of breath. Patient states that she was re-presented shortly after her heart catheterization and found to have a pulmonary embolism. She has been on anticoagulation since placement of her coronary stent and discovery of her embolism. The patient states that she had recently been doing well until over the course of the weekend. Patient states that this weekend she began to feel her "lower stomach rumble". She states that she then had a few stools that were somewhat more "darker than usual". Patient states that she was to go to her son's house and had stopped by the grocery store on the way. Patient states that after walking out of the grocery store she had noted that she had a slight component of some fecal incontinence and "seepage". Patient states that when she arrived at her son's house she had found that there was a fair amount of old blood that she had passed through her anus and was upon her "underwear and buttocks" . Patient understandably became concerned and had called the emergency room. She did discuss the above findings with the physician on-call. He appropriately had recommended that she present to the emergency room for further evaluation. The patient states that she has underwent a prior EGD and colonoscopy by Gastroenterology in [place] about 4-5 years ago. She states that they did find some "ulcers in her esophagus and out- pouches in her colon". Patient states that she has suffered from "IBS" in the past. PAST MEDICAL HISTORY Performed by my nurse practitioner, Chase Joseph. PAST SURGICAL HISTORY Performed by my nurse practitioner, Chase Joseph. MEDICATIONS Performed by my nurse practitionerChase. ALLERGIES Performed by my nurse practitionerChase. SOCIAL HISTORY Performed by my nurse practitionerChase. FAMILY HISTORY Performed by my nurse practitionerChase. REVIEW OF SYSTEMS Performed by my nurse practitioner, Chase Joseph. PHYSICAL EXAMINATION GENERAL: Mrs. Salmeron is a 67-year-old female who does not appear to be in acute distress. VITALS: Temperature 96.5. Pulse 77. Respirations 16. Blood pressure 113/62. SaO2 96% on room air. HEENT: Normocephalic. Pupils are equally round and react to light and accommodation. NECK: Supple without lymphadenopathy. CHEST: Clear to auscultation bilaterally. HEART: Regular rate and rhythm. Normal S1, S2, without gallops, murmurs or clicks. ABDOMEN: Palpation of the abdomen reveals it to be soft and nontender. I do not appreciate any evidence for hepatosplenomegaly nor abnormal masses. EXTREMITIES: Without clubbing, cyanosis, or edema. NEURO: Cranial nerves II-XII grossly intact. Patient without focal, motor, or sensory deficits. LABORATORY/RADIOGRAPHIC EVALUATION The patient had a CBC upon admission yesterday and her hemoglobin was 12.6. Today her hemoglobin is 11.8. BMP was obtained yesterday and her BUN was slightly elevated at 20.0. AST and ALT were minimally elevated at 43 and 68. ASSESSMENT 67-year-old female with associated medical comorbidities who presents with history of melanotic stools. Exact etiology unclear. PLAN Bidirectional endoscopy. I informed the patient it would be my recommendation that tomorrow we go ahead and proceed with an EGD and colonoscopy for further evaluation of the underlying etiology for her melanotic stools. The patient is on Eliquis and Brilinta from an anticoagulation standpoint. Typically we would hold these anticoagulants for a longer duration than 24 hours before proceeding with endoscopic evaluation. I do feel that the risk of the patient going without anticoagulation/antiplatelet therapy is fairly high and therefore will go ahead and proceed with bidirectional endoscopy tomorrow. I did discuss in detail with the patient what an EGD and colonoscopy would entail and its associated risks which include but are not exclusive of, bleeding and/or perforation requiring surgery. The patient understood and agreed with the proposed plan at this time. [facility]
[2017-08-13] MEDS: TRAZODONE 50 MG TABLET PO PRN (23:19)
[2017-08-14] MEDS: NS 1,000 ML IV SCH (06:45)
[2017-08-14] MEDS ORDERED: NS 1,000 ML IV SCH ×2 (07:15→10:15)
--- NOTE | 2017-08-14 07:22 | Anesthesia Preoperative Report ---
Anesthesia Preoperative Record - Date and Time Date: 08/14/17 Preoperative Diagnosis: suspected GI bleed NPO Since Date: 08/13/17 NPO Since Time: 00:00 Allergies/Adverse Reactions: Allergies Allergy/AdvReac Type Severity Reaction Status Date / Time Sulfa (Sulfonamide Allergy Unknown Rash Verified 08/12/17 23:52 Antibiotics) amoxicillin [From Augmentin] Allergy Diarrhea Verified 08/12/17 23:52 clavulanic acid Allergy Diarrhea Verified 08/12/17 23:52 [From Augmentin] codeine AdvReac Unknown Headache, Verified 08/12/17 23:52 nausea mirtazapine AdvReac Unknown Dizziness Verified 08/12/17 23:52 vortioxetine AdvReac Unknown Nausea Verified 08/12/17 23:52 guaifenesin [From Mucinex D] AdvReac lightheaded, Verified 08/12/17 23:52 "out of control feeling" hydrocodone [From [place]] AdvReac headache, Verified 08/12/17 23:52 nausea pseudoephedrine AdvReac lightheaded, Verified 08/12/17 23:52 [From Mucinex D] "out of control feeling" - Vital Signs Vital Signs: Temperature 98.4 F 08/14/17 06:52 Pulse Rate 93 08/14/17 06:52 Respiratory Rate 15 08/14/17 06:52 Blood Pressure 131/60 08/14/17 06:52 Pulse Oximetry 94 08/14/17 06:52 - Medications Inpatient Medications: Current Medications Acetaminophen (Tylenol) 325 - 650 mg PO Q5H PRN PRN Reason: Discomfort Sodium Chloride (Normal Saline) 1,000 mls @ 75 mls/hr IV .[id number] [facility] Last Admin: 08/14/17 06:45 Dose: Not Given Sodium Chloride (Normal Saline) 1,000 mls @ 50 mls/hr IV .Q20H [facility] Last Admin: 08/14/17 07:05 Dose: 50 mls/hr Pantoprazole Sodium (Protonix Iv) 40 mg IVP Q12H [facility] Last Admin: 08/13/17 22:34 Dose: 40 mg Sodium Chloride (Iv Flush) 10 - 80 ml IVF PRN PRN PRN Reason: Flushing Last Admin: 08/12/17 19:33 Dose: 10 ml Sodium Phosphate (Fleet Enema) 1 enema [place] PRN PRN Trazodone HCl (Desyrel) 50 mg PO HS PRN PRN Reason: Insomnia Last Admin: 08/13/17 23:19 Dose: 50 mg Home Medications: Home Medications Medication Instructions Recorded Confirmed Type Ascorbic Acid [Vitamin C] 500 mg PO DAILY #0 10/25/10 08/12/17 History Infliximab [Remicade] 800 mg IV Q 4 WEEKS #0 10/25/10 08/12/17 History Aspirin [Aspir 81] 81 mg PO HS #0 05/22/13 08/12/17 History Lisinopril/Hctz [Prinzide 1 tab PO DAILY #0 05/22/13 08/12/17 History 20] metHOTREXate sodium [Methotrexate] 15 mg PO WEEKLY #0 05/22/13 08/12/17 History Atorvastatin [Lipitor] 5 mg PO HS 06/12/17 08/12/17 History Fexofenadine/Pseudoephedrine 1 tab PO DAILY 06/12/17 08/12/17 History [Irene-D 24 Hour Tablet] Fluoxetine HCl [Prozac] 40 mg PO DAILY 06/12/17 08/12/17 History Metoprolol Tartrate [Lopressor] 25 mg PO BIDWM 06/12/17 08/12/17 History SUMAtriptan succinate [Sumatriptan 50 mg PO BID PRN 06/12/17 08/12/17 History Succinate] Trazodone [Desyrel] 50 - 100 mg PO HS 06/12/17 08/12/17 History Vitamin A 800 unit PO DAILY 06/12/17 08/12/17 History Vitamin E 400 unit PO DAILY 06/12/17 08/12/17 History Loperamide HCl/Simethicone 0.5 tab PO DAILY 06/19/17 08/12/17 History [Imodium Multi-Symptom Rel Cplt] Cholecalciferol (Vitamin D3) 2,000 unit PO DAILY 07/01/17 08/12/17 History [Vitamin D3] Folic Acid 0.8 mg PO DAILY 07/01/17 08/12/17 History Vitamin B Complex Vit C No.4 150 mg PO DAILY 07/01/17 08/12/17 History [Super B Complex] Is Patient on Beta Zhen?: Yes Beta Zhen Last Dose Date/Time: 08/12/17 @ 0700 - Medical History Respiratory: Reports: Bronchitis, Pulmonary Embolism (BILAT), Pneumonia DENIES: Sleep Apnea Cardiovascular: Reports: Arrhythmia (PVC), Coronary Artery Disease (stent to LAD 06/12/17), Hypertension Gastrointestional: Reports: Other (IBS) Neuro/Musculoskeletal: Reports: Depression Comment Only: Other (rheumatoid arthritis) Other History: Reports: Cancer (skin ca; basal cell) - Surgical History Cardiac Surgeries/Treatments: Reports: Cardiac Catheterization (STENT 06/2017 ( LAD)) GI Surgery/Treatments: Reports: Cholecystectomy, Colonoscopy Comment Only: Other (IBS) Musculoskeletal Surgery/Tx: Reports: Total Hip Replacement (R), Other (spinal fusion) Reproductive Surgery/Treatment: Reports: Hysterectomy Anesthesia Reactions: None Hx Family Anesthesia Reaction: No History of Motion Sickness: No - Social History Smoking Status: Never smoker Hx Chewing Tobacco Use: No Second Hand Exposure: No Substance Use Type: does not use Alcohol Intake Frequency: does not drink - Pertinent Findings Laboratory: CBC and BMP 08/14/17 04:16 08/14/17 04:16 BMP 08/14/17 04:16 Sodium 145 H Potassium 3.2 L Chloride 112 H Carbon Dioxide 23 BUN 9.0 Creatinine 0.8 Glucose 100 Calcium 9.0 - Physical Exam Respiratory Exam: Present: lungs clear Cardiovascular Exam: Present: regular rate and rhythm - Airway Assessment Mallampati Score: II TMD: 3 Fingerbreadths Neck Extension: fair Teeth: chipped teeth/crowns Overall Assessment: no airway concerns - ASA ASA Score: 3 - Plan Anesthesia: General TIVA - Discussion Discussion: Discussed risks/options/alternatives of anesthesia and questions answered. Patient consents. Nursing pain assessment noted. Attestation Statement: Prior to the delivery of any anesthetic medication, I examined the patient, developed the plan, obtained the patient's consent and discussed the risk and benefits of the procedure with the patient/guardian. - Additional Information Seen by Anesthesia: Yes
[2017-08-14] MEDS ORDERED: LIDOCAINE VISCOUS 2% ORAL LIQUID 15ml ONE (07:29)
[2017-08-14] MEDS ORDERED: PROPOFOL 20 ML ONE (08:08)
--- NOTE | 2017-08-14 08:24 | General Surgery Procedure Note ---
Date of Procedure: 08/14/17 Surgeon: Mirella Postoperative Diagnosis: Normal EGD. Proctitis, Diverticulosis, Colon polyp, Internal Hemorrhoids. Procedure: EGD. Colonoscopy with snare polypectomy and rectal biopsy. Estimated Blood Loss: See Anesthesia Record.
--- NOTE | 2017-08-14 08:27 | Anesthesia Postoperative Note ---
- Date and Time Date: 08/14/17 Time: 08:27 - Status Patient Participated in Evaluation: Patient Participated in Person Vital Signs: Temperature 99.2 F 08/14/17 08:15 Pulse Rate 88 08/14/17 08:20 Respiratory Rate 19 08/14/17 08:20 Blood Pressure 113/55 08/14/17 08:20 Pulse Oximetry 94 08/14/17 08:20 Respiratory Function: Airway Patent, Regular Respirations Cardiovascular Function: Regular Pulse Mental Status: Alert and Oriented Pain Intensity: 0 Hydration: IV Infusing Complications During Recover: None Apparent - Follow-Up Instructions Instructions: Per Surgeon
[2017-08-14] MEDS ORDERED: SUMATRIPTAN 25 MG TABLET PO PRN (08:53)
[2017-08-14] MEDS ORDERED: METHOTREXATE 2.5MG TABLET PO SCH (08:53)
[2017-08-14] MEDS: ASPIRIN *EC* 81 MG TABLET PO SCH (10:08)
[2017-08-14] MEDS: TICAGRELOR 90 MG TABLET PO SCH ×2 (10:09→21:23)
[2017-08-14] MEDS: LISINOPRIL/HCTZ 20/25 MG TABLET PO SCH (10:09)
[2017-08-14] MEDS: FLUoxetine 20 MG CAPSULE PO SCH (10:09)
--- NOTE | 2017-08-14 10:36 | Progress Note ---
- Date 08/14/17 Subjective: F/U: Acute GI bleed with melena. Anticoagulation with ASA, Brilinta, and Eliquis Rough night-up a lot with bowel prep (on toilet for about 2 hours strait due to persistent stool). Noted bloody stool during prep. Did tolerate endoscopic procedures well this am. Awake and alert. Currently not having nausea or ab pain. No chest pressure or pain. Denies feeling dizzy or unsteady when up. Has ambulated in winter. Breathing stable. Objective Vital signs: Temperature 96.5 F L 08/14/17 09:08 Pulse Rate 78 08/14/17 10:15 Respiratory Rate 18 08/14/17 09:08 Blood Pressure 151/65 H 08/14/17 10:15 Pulse Oximetry 97 08/14/17 10:15 Height/Weight/BMI: Weight 95 kg - Constitutional Present: well nourished, well developed, obese, cooperative. Absent: combative , somnolent - Routine HEENT Exam Head: Present: normocephalic, atraumatic Eye: Present: EOMI, PERRL ENT: Present: mucous membranes moist - Routine Respiratory Exam Present: CTA bilaterally. Absent: respiratory distress, wheezes, crackles - Routine Cardiovascular Exam Present: RRR, no murmur - Routine Abdominal Exam Present: soft, normoactive bowel sounds, non distended, non tender - Routine Extremities Exam Present: no edema. Absent: cyanosis, clubbing Comments: SCD in place - Routine Musculoskeletal Exam Musculoskeletal: Present: no clubbing or cyanosis, normal strength - Routine Skin Exam Present: intact, dry, warm - Routine Neurological Exam Present: alert, oriented X3, CN II-XII intact, moving all extremities, vision grossly intact, hearing grossly intact, normal speech. Absent: motor deficit, altered mental status - Routine Psychiatric Exam Present: normal affect, normal thought process, cooperative, good insight, good judgment Results - Labs CBC & Chem 7: 08/14/17 04:16 08/14/17 04:16 Assessment and Plan (1) Gastrointestinal hemorrhage with melena Current visit: Yes Status: Acute (2) Bilateral pulmonary embolism Current visit: No Status: Acute (3) H/O heart artery stent Current visit: No Status: Acute (4) Other secondary pulmonary hypertension Current visit: No Status: Acute (5) Essential (primary) hypertension Current visit: No Status: Acute (6) Mixed hyperlipidemia Current visit: No Status: Acute (7) Rheumatoid arthritis Current visit: Yes Status: Acute Assessment and Plan: Assessment Acute GI bleed with melena Colonoscopy showing proctitis, diverticulosis, colon polyp (Bx taken) and internal hemorrhoids Bleeding likely lower secondary to hemorrhoids and proctitis Normal EGD Anticoagulation with ASA, Brilinta, and Eliquis Recent Bilateral PE CAD with stent placement in Jun 2017 HTN HDL RA Irritable Bowel syndrome-diarrhea Obesity with BMI 34.1 Plan Restart ASA and Brilinta secondary to recent stent placement-most critical anticoagulant to resume. Will need to monitor for further bleeding with these medications. Stop IVF as able to take po. Increase activities. Recheck hemoglobin this afternoon and tomorrow. Likely discharge to home tomorrow if hemoglobin stable and no further significant bleeding. Case discussed with CM. Time spent with patient care 25 minutes. DVT Prophylaxis: SCD's Resuscitation Status: Full Code Hospital Course Summary Disclaimer: The visit summary below is not to be considered part of the above Progress Note. Hospital Course: 08/12 OBS Admission Assessment Acute GI bleed with melena Anticoagulation with ASA, Brilinta, and Eliquis Recent Bilateral PE CAD with stent placement HTN HDL RA Irritable Bowel syndrome-diarrhea Obesity with BMI 34.1 Fortunately Ms. Salmeron is hemodynamically stable and her hemoglobin appears stable compared to previous ones, however she is at high risk for complications if she is in fact bleeding internally. She is in a position where it's unsafe to stop her aspirin and Balint with the recent drug-eluting stent placement. It may be less dangerous to hold her Eliquis with a relatively low clot burden from the bilateral pulmonary emboli, but she would warrant serious consideration of vena cava filter versus holding for a short time and continuing. She needs a semiurgent GI evaluation in case there is a large ulcer that is present w visible vessel etc versus other source of blood loss. We'll admit her for observation, and repeat blood work in the morning. We'll keep her nothing by mouth after midnight for hopeful upper endoscopy within the next 12-24 hours. IV Protonix started. 08/13/17 With significant anticoagulation and bleeding do feel inpatient admission is warranted - anticipate patient will need greater than 2 midnight of care for monitoring and treatment of GI bleeding. Consult Dr Vu for surgical evaluation for potential endoscopy. Dr Vu recommends not performing endoscopic procedures today due to anticoagulation. Need to be off of blood thinners due to potential need for biopsy of GI tract. Biopsy in anticoagulated patient would cause significant GI bleeding. Will hold on ASA, Brilinta, and Eliquis due to concern for acute GI blood loss and need for Endoscopic procedures. Monitor hemoglobin. Type and screen due to concern for worsening anemia. SCD for DVT prevention as holding Eliquis. 08/14/17 OP DAY - EGD and Colonoscopy Restart ASA and Brilinta secondary to recent stent placement-most critical anticoagulant to resume. Will need to monitor for further bleeding with these medications. Stop IVF as able to take po. Increase activities. Recheck hemoglobin this afternoon and tomorrow. Likely discharge to home tomorrow if hemoglobin stable and no further significant bleeding.
--- NOTE | 2017-08-14 16:40 | Operative Note ---
DATE OF SERVICE SURGEON Chris Vu MD PREOPERATIVE DIAGNOSIS Personal history for rectal bleeding. POSTOPERATIVE DIAGNOSIS Normal EGD, proctitis, minimal sigmoid diverticulosis, colonic polyp x 1 within cecum. PROCEDURE Esophagogastroduodenoscopy, colonoscopy with polypectomy via snare polypectomy technique, biopsies from rectum via cold biopsy technique. ANESTHESIA TIVA BRIEF HISTORY/INDICATIONS Mrs. Salmeron is a 67-year-old female who presented yesterday to [facility] as a result of her history for rectal bleeding. As a result of her history for GI bleed it was recommended that she undergo bidirectional endoscopy. Patient presents today to undergo EGD and colonoscopy. For completeness please refer to notes included in the patient's chart. FINDINGS Upon upper endoscopy the esophagus, stomach and duodenum were found to be essentially within normal limits. There was no evidence for old blood upon the surface of the mucosa. No ulcerations were noted. Upon colonoscopy the patient was found to have prominent internal hemorrhoids. Just above one of these hemorrhoidal complexes the mucosa within the rectum was found to be erythematous in nature. This area of erythema, however, was fairly well localized to an area of about 2-3 cm in diameter. Photos were obtained for documentation purposes. Biopsies were obtained from this area of proctitis via cold biopsy technique. The patient was found to have a few scattered diverticula within the sigmoid colon region. Additionally, the patient was found to have about an 8-mm polyp within the cecum that was removed via snare polypectomy technique. There was no evidence for angiodysplastic lesions or irma malignancies. NARRATIVE OF PROCEDURE After informed consent was obtained the patient was brought to the endoscopy suite and placed in left lateral decubitus position. Patient subsequently underwent total intravenous anesthesia by the nurse [facility] at my request. Formal time-out was then completed. Next, an Olympus gastroscope was inserted in the oral hypopharynx and subsequently the esophagus under direct visualization. Gastroscope was advanced through the esophagus, stomach, pylorus , duodenal bulb, and second portion duodenum. Scope was slowly withdrawn. First and second portions of the duodenum were within normal limits. No evidence of duodenitis or ulcerations was noted. Scope was drawn back to the prepyloric region and antrum. Again, no marked mucosal abnormalities were noted. J-maneuver was performed. Cardia and fundus were within normal limits. Endoscopically, there was no evidence for hiatal hernia. Scope was allowed to straighten and was slowly withdrawn. The remaining corpus of the stomach was well visualized and again without marked abnormalities. Scope was drawn back to the level of the diaphragm. Squamocolumnar junction was located at the level of the diaphragm and was well demarcated with no endoscopic evidence for Liang's metaplasia or distal esophagitis. Scope was slowly withdrawn and the remaining esophageal mucosa was found to be within normal limits. Next, attention was directed towards performing a colonoscopy. First, digital rectal exam was performed. Normal sphincter tone. No rectal masses were appreciated. An Olympus colonoscope was inserted into the anal verge. One could then see an area of proctitis just above the anal verge. One could also see moderate internal hemorrhoidal disease. This area of proctitis was located at about 6-7 cm from the anal verge. There was an area about 3 cm in diameter that was erythematous in nature and the mucosa appeared somewhat edematous. There was also some white exudate-like material overlying the area of erythema. No irma ulcerations were noted. Scope was continued to be advanced under direct visualization of the lumen at all times until the cecum was ascertained. Triangulation of the taenia coli and ileocecal valve were identified. Within the cecum the patient was found to have a polyp on the order of 8 mm in diameter. A snare was placed around the polyp and the polyp was transected in its entirety and suctioned into a colonic trap. Colonoscope was slowly withdrawn, again maintaining visualization of the lumen at all times. A few scattered diverticula were noted within the sigmoid colon region. There was no evidence, however, for angiodysplastic lesions or irma allergies. Once the colonoscope was drawn back to the rectal vault a J-maneuver was performed. One could see some moderate internal hemorrhoidal disease but no worrisome perianal pathology was noted. Scope was allowed to straighten and was withdrawn back towards the anal verge. The prior area of proctitis/inflammation of the rectal mucosa was again visualized. Three biopsies were obtained from this area via cold biopsy technique. Scope was slowly withdrawn from the patient's anal verge. The patient tolerated the procedure without difficulty and was sent back to the preop area once deemed in stable condition. I do believe the patient's etiology for rectal bleeding was this localized area of inflammation within the rectum/proctitis. I recommend that we reinitiate her anticoagulation given her history for pulmonary emboli and recent placement of coronary stents within the LAD. Will await the biopsy results from her colonoscopy and proceed accordingly with further recommendations thereafter. JOB
[2017-08-14] MEDS: SALINE FLUSH 10ml SYRINGE IVF PRN ×2 (17:51→21:26)
[2017-08-14] MEDS ORDERED: TICAGRELOR 90 MG TABLET PO SCH (21:00)
[2017-08-14] MEDS ORDERED: ATORVASTATIN 10 MG TABLET PO SCH (21:00)
[2017-08-14] MEDS: TRAZODONE 50 MG TABLET PO PRN (21:23)
[2017-08-14] MEDS: APIXABAN 5 MG TABLET PO SCH (21:23)
[2017-08-15] MEDS: ACETAMINOPHEN 325 MG TABLET PO PRN ×2 (00:39→11:18)
[2017-08-15 02:14] VITALS: RESP 16
[2017-08-15 04:20] VITALS: O2SAT 95
[2017-08-15] MEDS ORDERED: OMEPRAZOLE 20 MG CAPSULE PO SCH (06:30)
[2017-08-15] MEDS: SALINE FLUSH 10ml SYRINGE IVF PRN (06:40)
[2017-08-15] MEDS: APIXABAN 5 MG TABLET PO SCH (08:36)
[2017-08-15] MEDS: LISINOPRIL/HCTZ 20/25 MG TABLET PO SCH (08:36)
[2017-08-15] MEDS: FLUoxetine 20 MG CAPSULE PO SCH (08:36)
[2017-08-15] MEDS: ASPIRIN *EC* 81 MG TABLET PO SCH (08:37)
[2017-08-15] MEDS: TICAGRELOR 90 MG TABLET PO SCH (08:37)
--- NOTE | 2017-08-15 12:25 | Progress Note ---
<Tameka Zapata V - Last Filed: 08/15/17 12:21> - Date 08/15/17 Subjective: Faviola is seen this morning in follow up. She reports she has had a migraine headache overnight and has utilized Imitrex and Tylenol, which has helped control the pain somewhat. She does reveal that she's had 3 bowel movements this morning with bright red blood present. However, she feels that this is more irritation in nature. He denies nausea or abdominal pain. She verbalizes wanting to be discharged home today. Hemoglobin remained stable. Objective Vital signs: Temperature 97.7 F 08/15/17 11:41 Pulse Rate 68 08/15/17 11:41 Respiratory Rate 16 08/15/17 11:41 Blood Pressure 135/70 08/15/17 11:41 Pulse Oximetry 95 08/15/17 11:41 Height/Weight/BMI: Weight 93.7 kg - Constitutional Present: no acute distress, well nourished, well developed - Routine HEENT Exam Eye: Present: EOMI ENT: Present: mucous membranes moist, dentition normal - Routine Respiratory Exam Present: CTA bilaterally. Absent: wheezes - Routine Cardiovascular Exam Present: RRR, S1, S2. Absent: murmur - Routine Abdominal Exam Present: soft, normoactive bowel sounds, non distended. Absent: tenderness - Routine Extremities Exam Present: full ROM - Routine Back/Spine/Pelvis Exam Back/Spine: Present: full ROM - Routine Skin Exam Present: intact, dry, warm - Routine Neurological Exam Present: alert, oriented X3, CN II-XII intact - Routine Lymphatic Exam Lymphatic: Absent: adenopathy - Routine Psychiatric Exam Present: normal affect, cooperative Results - Labs CBC & Chem 7: 08/15/17 04:08 08/15/17 04:08 Assessment and Plan (1) Bilateral pulmonary embolism Current visit: No Status: Acute (2) H/O heart artery stent Current visit: No Status: Acute (3) Other secondary pulmonary hypertension Current visit: No Status: Acute (4) Essential (primary) hypertension Current visit: No Status: Acute (5) Mixed hyperlipidemia Current visit: No Status: Acute (6) Gastrointestinal hemorrhage with melena Current visit: Yes Status: Acute (7) Rheumatoid arthritis Current visit: Yes Status: Acute Assessment and Plan: Assessment Acute GI bleed with melena Colonoscopy showing proctitis, diverticulosis, colon polyp (Bx taken) and internal hemorrhoids Bleeding likely lower secondary to hemorrhoids and proctitis Normal EGD Anticoagulation with ASA, Brilinta, and Eliquis Recent Bilateral PE CAD with stent placement in Jun 2017 HTN HDL RA Irritable Bowel syndrome-diarrhea Obesity with BMI 34.1 Plan ASA and Brilinta restarted yesterday as this is importance given recent cardiac stent placement Eliquis was initiated last evening. Hemoglobin today is stable. However, she has had several stools this morning with bright red blood present. Will need to evaluate later today. She is hopeful for discharge home today. Will discuss with attending Hospital Course Summary Disclaimer: The visit summary below is not to be considered part of the above Progress Note. Hospital Course: 08/12 OBS Admission Assessment Acute GI bleed with melena Anticoagulation with ASA, Brilinta, and Eliquis Recent Bilateral PE CAD with stent placement HTN HDL RA Irritable Bowel syndrome-diarrhea Obesity with BMI 34.1 Fortunately Ms. Salmeron is hemodynamically stable and her hemoglobin appears stable compared to previous ones, however she is at high risk for complications if she is in fact bleeding internally. She is in a position where it's unsafe to stop her aspirin and Balint with the recent drug-eluting stent placement. It may be less dangerous to hold her Eliquis with a relatively low clot burden from the bilateral pulmonary emboli, but she would warrant serious consideration of vena cava filter versus holding for a short time and continuing. She needs a semiurgent GI evaluation in case there is a large ulcer that is present w visible vessel etc versus other source of blood loss. We'll admit her for observation, and repeat blood work in the morning. We'll keep her nothing by mouth after midnight for hopeful upper endoscopy within the next 12-24 hours. IV Protonix started. 08/13/17 With significant anticoagulation and bleeding do feel inpatient admission is warranted - anticipate patient will need greater than 2 midnight of care for monitoring and treatment of GI bleeding. Consult Dr Vu for surgical evaluation for potential endoscopy. Dr Vu recommends not performing endoscopic procedures today due to anticoagulation. Need to be off of blood thinners due to potential need for biopsy of GI tract. Biopsy in anticoagulated patient would cause significant GI bleeding. Will hold on ASA, Brilinta, and Eliquis due to concern for acute GI blood loss and need for Endoscopic procedures. Monitor hemoglobin. Type and screen due to concern for worsening anemia. SCD for DVT prevention as holding Eliquis. 08/14/17 OP DAY - EGD and Colonoscopy Restart ASA and Brilinta secondary to recent stent placement-most critical anticoagulant to resume. Will need to monitor for further bleeding with these medications. Stop IVF as able to take po. Increase activities. Recheck hemoglobin this afternoon and tomorrow. Likely discharge to home tomorrow if hemoglobin stable and no further significant bleeding. 08/15/17 Plan ASA and Brilinta restarted yesterday as this is importance given recent cardiac stent placement Eliquis was initiated last evening. Hemoglobin today is stable. However, she has had several stools this morning with bright red blood present. Will need to evaluate later today. She is hopeful for discharge home today. Will discuss with attending <Meredith Stephenson - Last Filed: 08/15/17 15:15> - Date 08/15/17 Objective Vital signs: Results - Labs CBC & Chem 7: 08/15/17 04:08 08/15/17 04:08 Assessment and Plan (1) Gastrointestinal hemorrhage with melena Current visit: Yes Status: Acute (2) Bilateral pulmonary embolism Current visit: No Status: Chronic (3) Essential (primary) hypertension Current visit: No Status: Chronic Assessment and Plan: I have independently evaluated and examined this patient. I reviewed the chart, the patient's history, and the REGIONAL PROGRAM MANAGER/PA's documented findings as above. We discussed and formulated the assessment and plan as above with additions as below: Patient describes formed bowel movement this morning without bleeding followed by several loose stools (IBS) with minimal associated bleeding/spotting of red blood, third stool amounted to nothing more than a "smear"per patient report. Denies lightheadedness or dizziness. Surgical pathology available demonstrating low-grade dysplasia of tubular adenoma and nonspecific chronic mucosal inflammation with rare foci of cryptitis , no granuloma, and no dysplasia or malignant neoplasm in the colonic mucosal biopsies. Respirations are nonlabored, cardiac rhythm regular, and abdomen is soft/ nontender. Minor rectal bleeding with reinitiation of Eliquis and antiplatelet agents. Check hemoglobin at 3 PM-if stable will discharge with follow-up with Dr. Tan on Sunday. Pathology reviewed with Dr. Vu. High-risk medications in use. DVT Prophylaxis: Eliquis (therapeutic) Resuscitation Status: Full Code Hospital Course Summary Disclaimer: The visit summary below is not to be considered part of the above Progress Note.
--- NOTE | 2017-08-15 16:25 | Discharge Summary ---
<Tameka Zapata V - Last Filed: 08/15/17 16:21> Discharge Information Date of admission: 08/13/17 16:04 Anticipated date of discharge: 08/15/17 Attending Physician: Meredith Stephenson MD Primary care physician: Sarmad Tan MD Consults: Dr Vu - Discharge Diagnosis (1) Bilateral pulmonary embolism Status: Chronic (2) Essential (primary) hypertension Status: Chronic (3) Gastrointestinal hemorrhage with melena Status: Acute Acute GI bleed with melena Colonoscopy showing proctitis, diverticulosis, colon polyp (Bx taken) and internal hemorrhoids Bleeding likely lower secondary to hemorrhoids and proctitis Normal EGD Anticoagulation with ASA, Brilinta, and Eliquis Recent Bilateral PE CAD with stent placement in Jun 2017 HTN HDL RA Irritable Bowel syndrome-diarrhea Obesity with BMI 34.1 - Procedures Procedures: 08/14/17-Esophagogastroduodenoscopy, colonoscopy with polypectomy via snare polypectomy technique, biopsies from rectum via cold biopsy technique. Dr. Vu - Laboratory Labs: 08/15/17 15:09 08/15/17 04:08 - Microbiology None - Radiology Radiology: None History of Present Illness HPI: Very pleasant 67-year-old white female who presents to room with 3 episodes of tarry stools since this morning. She has been on brilinta and aspirin for 2 months for ACS/DEBBIE placed x 2, then on apixaban 2 weeks after for bilateral pulmonary emboli with low clot burden. She denies abdominal pain but did have some cramping w stools. She denies n/v/f/c/cp/soa. She does have a history of peptic ulcer disease 20 years prior, has been on Prilosec 20 mg qam 30 min ac since on triple therapy. She continues to take MTX and Remicade for her MS. She has history of IBS and has had colonoscopy [address] Norton in [place] "small ulcers throughout" Objective Vital signs: Temperature 97.7 F 08/15/17 11:41 Pulse Rate 68 08/15/17 11:41 Respiratory Rate 16 08/15/17 11:41 Blood Pressure 135/70 08/15/17 11:41 Pulse Oximetry 95 08/15/17 11:41 Height/Weight/BMI: Weight 93.7 kg - Constitutional Present: no acute distress, well nourished, well developed - Routine HEENT Exam Eye: Present: EOMI ENT: Present: mucous membranes moist, dentition normal - Routine Respiratory Exam Present: CTA bilaterally. Absent: wheezes - Routine Cardiovascular Exam Present: RRR. Absent: murmur - Routine Abdominal Exam Present: soft, normoactive bowel sounds, non distended. Absent: tenderness - Routine Extremities Exam Present: normal capillary refill - Routine Skin Exam Present: intact, dry, warm - Routine Neurological Exam Present: alert, oriented X3, CN II-XII intact, moving all extremities - Routine Lymphatic Exam Lymphatic: Absent: adenopathy - Routine Psychiatric Exam Present: normal affect, cooperative Hospital Course This is a general summary of the patient's hospital course. For more details refer to the complete medical record. Hospital course: 08/12 OBS Admission Assessment Acute GI bleed with melena Anticoagulation with ASA, Brilinta, and Eliquis Recent Bilateral PE CAD with stent placement HTN HDL RA Irritable Bowel syndrome-diarrhea Obesity with BMI 34.1 Fortunately Ms. Salmeron is hemodynamically stable and her hemoglobin appears stable compared to previous ones, however she is at high risk for complications if she is in fact bleeding internally. She is in a position where it's unsafe to stop her aspirin and Balint with the recent drug-eluting stent placement. It may be less dangerous to hold her Eliquis with a relatively low clot burden from the bilateral pulmonary emboli, but she would warrant serious consideration of vena cava filter versus holding for a short time and continuing. She needs a semiurgent GI evaluation in case there is a large ulcer that is present w visible vessel etc versus other source of blood loss. We'll admit her for observation, and repeat blood work in the morning. We'll keep her nothing by mouth after midnight for hopeful upper endoscopy within the next 12-24 hours. IV Protonix started. 08/13/17 With significant anticoagulation and bleeding do feel inpatient admission is warranted - anticipate patient will need greater than 2 midnight of care for monitoring and treatment of GI bleeding. Consult Dr Vu for surgical evaluation for potential endoscopy. Dr Vu recommends not performing endoscopic procedures today due to anticoagulation. Need to be off of blood thinners due to potential need for biopsy of GI tract. Biopsy in anticoagulated patient would cause significant GI bleeding. Will hold on ASA, Brilinta, and Eliquis due to concern for acute GI blood loss and need for Endoscopic procedures. Monitor hemoglobin. Type and screen due to concern for worsening anemia. SCD for DVT prevention as holding Eliquis. 08/14/17 OP DAY - EGD and Colonoscopy Restart ASA and Brilinta secondary to recent stent placement-most critical anticoagulant to resume. Will need to monitor for further bleeding with these medications. Stop IVF as able to take po. Increase activities. Recheck hemoglobin this afternoon and tomorrow. Likely discharge to home tomorrow if hemoglobin stable and no further significant bleeding. 08/15/17 Plan ASA and Brilinta restarted yesterday as this is importance given recent cardiac stent placement Eliquis was initiated last evening. Hemoglobin today is stable. However, she has had several stools this morning with bright red blood present. Will need to evaluate later today. She is hopeful for discharge home today. Will discuss with attending 08/15/17- Dr Stephenson- Discharge I have independently evaluated and examined this patient. I reviewed the chart, the patient's history, and the TISSUE TECHNOLOGIST/PA's documented findings as above. We discussed and formulated the assessment and plan as above with additions as below: Patient describes formed bowel movement this morning without bleeding followed by several loose stools (IBS) with minimal associated bleeding/spotting of red blood, third stool amounted to nothing more than a "smear"per patient report. Denies lightheadedness or dizziness. Surgical pathology available demonstrating low-grade dysplasia of tubular adenoma and nonspecific chronic mucosal inflammation with rare foci of cryptitis , no granuloma, and no dysplasia or malignant neoplasm in the colonic mucosal biopsies. Respirations are nonlabored, cardiac rhythm regular, and abdomen is soft/ nontender. Minor rectal bleeding with reinitiation of Eliquis and antiplatelet agents. HGB has fluctuated between 11.8-12 during hospitalization. Will discharge today with plan for follow-up with Dr. Tan on Sunday Recommend CBC and BMP at that time. Pathology reviewed with Dr. Vu. High-risk medications in use. Time spent with patient: discharge greater than 30 minutes DVT Prophylaxis: Eliquis Discharge Plan - Discharge Disposition Discharge Date: 08/15/17 Disposition: 01 Discharged Home, Self-Care *Condition: Improved Reason For Visit (Visit label in EMR): suspected GI bleed - Discharge Medications *Discharge Medications: New Acetaminophen [Tylenol] 325 - 650 mg PO Q5H PRN tablet PRN Reason: Discomfort Continue metHOTREXate sodium [Methotrexate] 15 mg PO WEEKLY #0 Lisinopril/Hctz 20/25 [Prinzide 20/25] 1 tab PO DAILY #0 Aspirin [Aspir 81] 81 mg PO HS #0 Vitamin A 800 unit PO DAILY Trazodone [Desyrel] 50 - 100 mg PO HS Fluoxetine HCl [Prozac] 40 mg PO DAILY Metoprolol Tartrate [Lopressor] 25 mg PO BIDWM Atorvastatin [Lipitor] 5 mg PO HS Fexofenadine/Pseudoephedrine [Irene-D 24 Hour Tablet] 1 tab PO DAILY Ticagrelor [Brilinta] 90 mg PO Q12HR #180 tab Loperamide HCl/Simethicone [Imodium Multi-Symptom Rel Cplt] 0.5 tab PO DAILY Vitamin B Complex Vit C No.4 [Super B Complex] 150 mg PO DAILY Cholecalciferol (Vitamin D3) [Vitamin D3] 2,000 unit PO DAILY Omeprazole [Prilosec] 20 mg PO ACB #30 cap Ascorbic Acid [Vitamin C] 500 mg PO DAILY #0 Infliximab [Remicade] 800 mg IV Q 4 WEEKS #0 Vitamin E 400 unit PO DAILY SUMAtriptan succinate [Sumatriptan Succinate] 50 mg PO BID PRN PRN Reason: Migraine Headache Folic Acid 0.8 mg PO DAILY Apixaban [Eliquis] 5 mg PO BID #60 tab Meclizine [Antivert] 25 mg PO Q6H PRN tablet PRN Reason: dizziness - Discharge Packet/Instructions *Diet: 2000 Calorie CC diet *Activity: Activity as tolerated *Pain Management/Treatment: Tylenol as needed *Wound Care: N/A Additional Instructions: Continue with all normal medications. Monitor carefully for blood in stools. Return to ER if bloody stools. Follow up with Dr Tan sunday. Will need CBC and BMP *Expected Signs/Symptoms: Improvement in symptoms *Notify Physician if: Weakness, Dizziness, increased bleeding in stools or other concerning symptoms *During Business Hours Contact: Contact Dr. Tan office *After Business Hours Contact: Contact on-call physician or present to the emergency room *Pending Lab/Results: No Pending Lab - Referrals/Follow Up *Referrals/Follow Up: Sarmad Tan MD [Family Provider] - (These follow-up with Dr. Tan on Friday 08/17 as planned. He will need a CBC and BMP at that time) - Patient Handouts - Dismissal Complete Discharge Instructions are:: Complete <Meredith Stephenson - Last Filed: 08/15/17 17:05> Discharge Information Date of admission: 08/13/17 16:04 Primary care physician: - Discharge Diagnosis (1) Gastrointestinal hemorrhage with melena Status: Acute (2) Bilateral pulmonary embolism Status: Chronic (3) Essential (primary) hypertension Status: Chronic - Laboratory Labs: Objective Vital signs: Temperature 97.7 F 08/15/17 11:41 Pulse Rate 68 08/15/17 11:41 Respiratory Rate 16 08/15/17 11:41 Blood Pressure 135/70 08/15/17 11:41 Pulse Oximetry 95 08/15/17 11:41 Height/Weight/BMI: Weight 93.7 kg Hospital Course This is a general summary of the patient's hospital course. For more details refer to the complete medical record. Hospital course: I have independently evaluated and examined this patient. I reviewed the chart, the patient's history, and the TISSUE TECHNOLOGIST/PA's documented findings as above. We discussed and formulated the assessment and plan as above with additions as below: Patient is doing well as previously described. Abdomen is benign and she stable for discharge today. She is hemodynamically stable. Hemoglobin has fluctuated between 11.6 and 12.8 during the hospitalization with no consistent trend seen. Pathology as described previously. Follow-up with Dr. Vu if new issues develop. To follow up with Dr. Tan on Sunday.
[2017-08-15 17:47] VITALS: BP 136/66; PULSE 70; TEMP 97.9
== END 2017-08-15 18:20 | disposition home or self-care (01) | DRG 379 ==
LOC: SRG 18:36 → ED 18:36 → SRG 20:50 → SUATTDRO 08-13 16:04
PROVIDERS: ADMIT Pediatrics; ATTEND Internal Medicine
PROC: END.EGD (2017-08-14 07:30)

== ENCOUNTER 2018-04-11 10:31 | Observation (INO) ==
--- NOTE | 2018-04-11 10:45 | Emergency Department Report ---
General Adult HPI - General Chief complaint: Chest Pain Stated complaint: soa, chest pressure Time Seen by Provider: 04/11/18 10:44 Source: patient Mode of arrival: ambulatory Limitations: no limitations - History of Present Illness HPI narrative: 67 F resents to the emergency department with the chief complaint of chest pressure and feeling slightly short of breath. Patient was at home earlier this morning watering her valero when she noted onset of symptoms. Symptoms became present with exertion. She notes resolution of symptoms with rest. She notes a mild dull pressure to the left chest without radiation upon presentation to the emergency department. Shortness of breath has resolved. No other complaints or associated symptoms. She was at home when her symptoms began. Symptoms have been persistent in nature since onset as noted above. - Related Data Home Medications Medication Instructions Recorded Confirmed Infliximab [Remicade] 800 mg IV Q 4 WEEKS #0 10/25/04/11/18 Lisinopril/Hctz 20 [Prinzide 1 tab PO DAILY #0 05/22/13 04/11/18 2025] Atorvastatin [Lipitor] 5 mg PO HS 06/12/17 04/11/18 Fexofenadine/Pseudoephedrine 1 tab PO DAILY PRN 06/12/17 04/11/18 [Irene-D 24 Hour Tablet] Fluoxetine HCl [Prozac] 40 mg PO DAILY 06/12/17 04/11/18 Metoprolol Tartrate [Lopressor] 25 mg PO BIDWM 06/12/17 04/11/18 SUMAtriptan succinate [Sumatriptan 50 mg PO BID PRN 06/12/17 04/11/18 Succinate] Trazodone [Desyrel] 50 - 100 mg PO HS 06/12/17 04/11/18 Vitamin A 800 unit PO DAILY 06/12/17 04/11/18 Vitamin E 400 unit PO DAILY 06/12/17 04/11/18 Loperamide HCl/Simethicone 1 tab PO DAILY 06/19/17 04/11/18 [Imodium Multi-Symptom Rel Cplt] Cholecalciferol (Vitamin D3) 2,000 unit PO DAILY 07/01/17 04/11/18 [Vitamin D3] Folic Acid 0.8 mg PO DAILY 07/01/17 04/11/18 Vitamin B Complex Vit C No.4 150 mg PO DAILY 07/01/17 04/11/18 [Super B Complex] Ascorbate Calcium [Vitamin C] 500 mg PO DAILY 04/11/18 04/11/18 Aspirin [Adult Aspirin] 81 mg PO HS 04/11/18 04/11/18 METHOTREXATE 2.5mg TAB 15 mg PO WEEKLY 04/11/18 04/11/18 [Methotrexate] Previous Rx's Medication Instructions Recorded Ticagrelor [Brilinta] 90 mg PO Q12HR #180 tab 06/13/17 Apixaban [Eliquis] 5 mg PO BID #60 tab 07/02/17 Meclizine [Antivert] 25 mg PO Q6H PRN tab 07/02/17 Omeprazole [Prilosec] 20 mg PO ACB #30 cap 07/02/17 Allergies Allergy/AdvReac Type Severity Reaction Status Date / Time Sulfa (Sulfonamide Allergy Unknown Rash Verified 04/11/18 13:17 Antibiotics) amoxicillin [From Augmentin] Allergy Diarrhea Verified 04/11/18 13:17 clavulanic acid Allergy Diarrhea Verified 04/11/18 13:17 [From Augmentin] codeine AdvReac Unknown Headache, Verified 04/11/18 13:17 nausea mirtazapine AdvReac Unknown Dizziness Verified 04/11/18 13:17 vortioxetine AdvReac Unknown Nausea Verified 04/11/18 13:17 clindamycin AdvReac Verified 04/11/18 13:17 guaifenesin [From Mucinex D] AdvReac lightheaded, Verified 04/11/18 13:17 "out of control feeling" hydrocodone [From [place]] AdvReac headache, Verified 04/11/18 13:17 nausea pseudoephedrine AdvReac lightheaded, Verified 04/11/18 13:17 [From Mucinex D] "out of control feeling" Review of Systems Constitutional: Denies: fever, chills Eyes: Denies: eye pain, vision change ENT: Denies: ear pain, throat pain Cardiovascular: Reports: chest pain. Denies: palpitations Respiratory: Reports: dyspnea (resolved). Denies: cough Gastrointestinal: Denies: abdominal pain, nausea, vomiting, diarrhea Genitourinary: Denies: urgency, dysuria Musculoskeletal: Denies: back pain, arthralgia Integumentary: Denies: erythema, rash Neurological: Denies: headache, numbness, paresthesias Psychiatric: Denies: anxiety, depression Endocrine: Denies: polydipsia, polyuria Hematological/Lymphatic: Denies: easy bruising, lymphadenopathy Allergic/Immunologic: Denies: facial swelling, urticaria PFSH Patient Stated Medical History Migraine Yes Hearing Loss bilat hearing aids Cardiac Arrhythmia Yes: PVC Coronary Artery Disease Yes: stent to LAD 06/12/17 Hypertension Yes Bronchitis Yes Pneumonia Yes Pulmonary Embolism Yes: BILAT Sleep Apnea No Other GI Yes: IBS Hx Urinary Tract Infection Yes Other bladder repair Clotting Problems Yes: HX BILAT PE'S Other Musculoskeletal rheumatoid arthritis Clostridium Difficile Yes: 2001 Sepsis Yes Depression Yes Endometriosis Yes Surgical History: Heart cath with cardiac stent placement-06/12/17-Dr. Wiggins. Total hysterectomy. Cholecystectomy. Abdominal lap 2. D&C. Right hip replacement-2010. Lumbar spinal fusion Family History: Reviewed and noncontributory. 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 Does patient use chewing tobacco?: No Current residence: Apartment/Private Home Physical Exam - Limitations Limitations: no limitations - General General appearance: alert, in no apparent distress - Normal Exams: Head:: Normocephalic without trauma Eyes:: Pupils are PERRLA w/ EOMI, No scleral icterus, irritation, or foreign bodies noted ENMT:: No facial trauma, nasal exudates, pharyngeal erythema, or exudates are noted Dental: No fractured, loose, or missing teeth noted Neck:: Full range of motion, without adenopathy, JVD, bruits or thyromegaly Chest/Respirations:: Clear all estrada, with good airflow, and symmetry bilaterally Cardiovascular:: Regular rate and rhythm, without murmur or gallop, Pulses 2+ all extremities, capillary refill, <2 seconds all extremities Abdomen:: Bowel sounds positive, soft, non-tender, non-distended, no hepatosplenomegaly, masses or bruits noted Lymphatic:: No lymphadenopathy, or lymphedema noted Musculoskeletal:: No tenderness, or deformity noted, good range of motion, all extremities Integumentary:: No rashes, hives, or bruising noted, hair and nails, without abnormality Neurological:: Patient is alert, and oriented, cranial nerves, motor/sensory/ cerebellar, exams w/o gross deficits, to observation Psychiatric:: Patient exhibits, appropriate attention, emotion and affect Medical Decision Making - [facility] Narrative Medical decision making narrative: Labs / imaging were discussed in detail with the patient and family and questions are answered. Patient declines recommended analgesic pain medication /nitroglycerin in the emergency department. Patient was given 500 mL bolus of normal saline intravenously. She was given 324 mg of aspirin by mouth times one. Patient is anticoagulated on Eliquis. Patient is discussed with her piano stringer Dr. Wiggins who recommends admission to his service for further evaluation and treatment. Patient is in agreement with the current plan of management. She is admitted to the hospital in improved condition. No further orders from accepting physician who is in agreement with the current plan of management. - Differential Diagnosis ACS, chest wall pain, pneumothorax, metabolic disorder - Lab Data Result diagrams: 04/11/18 10:56 04/11/18 16:11 - Radiology Data CXR - No acute processes. - EKG Data EKG #1 EKG results narrative: Sinus tachycardia. Nonspecific ST Changes. No STEMI. 101 bpm. Disposition Clinical Impression: Chest pain Qualifiers: Chest pain type: unspecified Qualified Code(s): R07.9 - Chest pain, unspecified Disposition: 02 To [facility] Condition: Improved Time of Disposition: 12:30 (Admit. Dr. Wiggins. ) - Seen By: physician
--- NOTE | 2018-04-11 11:15 | XRay Report ---
Indication: Chest pain and pressure with shortness of air. PROCEDURE: XR chest 1V: Encounter: Initial Comparison: Chest CT dated July 01, 2017 FINDINGS: The lungs are clear. There is no abnormal airspace opacity, pleural effusion or pneumothorax identified. The heart size, pulmonary vasculature and mediastinum are within normal limits. No significant skeletal abnormality is seen. IMPRESSION: No acute cardiopulmonary abnormality. .
[2018-04-11] MEDS: SALINE FLUSH 10ml SYRINGE IVF PRN ×2 (11:24→20:54)
[2018-04-11] MEDS ORDERED: ASPIRIN 81 MG CHEWABLE TABLET PO ONE (12:34)
[2018-04-11 13:08] VITALS: BMI 31.6
[2018-04-11] MEDS ORDERED: NITROGLYCERIN 0.4 MG SUBLINGUAL TABLET SL PRN (13:41)
[2018-04-11] MEDS ORDERED: MORPHINE SULFATE 10mg/ml INJECTION IVP PRN (13:41)
--- NOTE | 2018-04-11 13:42 | Cardiology History & Physical ---
History of Present Illness Chief complaint: chest pain HPI: Nubia is a 67 year old female who is known to Dr. Wiggins with a history of CAD with DEBBIE to the LAD 06/2017, Bilateral PE about 3 weeks later, and GI bleed the following month, PVCs, HTN and HLD who presented to the ED with chest pain/ pressure this am. 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 She thinks she may have been a little dehydrated as well. EKG showed sinus tach, HR 101 with occasional PVCs and nonspecific ST-T changes. Initial troponin is negative. Dr. Wiggins is contacted for admission to Surgical for observation and further evaluation. Review of Systems - Constitutional Constitutional: Absent: chills, fatigue, fever(s) - EENMT Eyes: Absent: change in vision Balance: Absent: vertigo Mouth/Throat: Absent: sore throat - Cardiovascular Cardiovascular: Present: chest pain (pressure), dyspnea on exertion, edema. Absent: palpitations, syncope, heart murmur Rhythm: Absent: abnormal rhythm Vascular: Absent: pedal edema - Respiratory Respiratory: Present: dyspnea, dyspnea on exertion. Absent: cough - Gastrointestinal Gastrointestinal: Absent: diarrhea, nausea, vomiting - Genitourinary Genitourinary: Absent: dysuria - Integumentary/Breasts Integumentary: Absent: rash - Neurological Neurological: Present: dizziness - Endocrine Endocrine: Absent: palpitations PFSH Patient Stated Medical History Migraine Yes Hearing Loss bilat hearing aids Cardiac Arrhythmia Yes: PVC Coronary Artery Disease Yes: stent to LAD 06/12/17, reports 85% blockage Hypertension Yes Bronchitis Yes Pneumonia Yes Pulmonary Embolism Yes: BILAT 07/2017 Sleep Apnea No Gastrointestinal Bleeding Yes: 08/2017 Ulcer Yes Other GI Yes: IBS, diverticulitis Hx Urinary Tract Infection Yes Other bladder repair Clotting Problems Yes: HX BILAT PE'S Other Musculoskeletal rheumatoid arthritis Clostridium Difficile Yes: 2001 Sepsis Yes Depression Yes: chronic Endometriosis Yes Surgical History: Heart cath with cardiac stent placement-06/12/17-Dr. Wiggins. Total hysterectomy. Cholecystectomy. Abdominal lap 2. D&C. Right hip replacement-2010. 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 Does patient use chewing tobacco?: No Current residence: Apartment/Private Home Medications Home Medications Medication Instructions Recorded Confirmed Type Infliximab [Remicade] 800 mg IV Q 4 WEEKS #0 10/25/10 04/17/18 History Lisinopril/Hctz [Prinzide 1 tab PO DAILY #0 05/22/13 04/17/18 History 20] Atorvastatin [Lipitor] 5 mg PO HS 06/12/17 04/17/18 History Fexofenadine/Pseudoephedrine 1 tab PO DAILY PRN 06/12/17 04/17/18 History [Irene-D 24 Hour Tablet] Fluoxetine HCl [Prozac] 40 mg PO DAILY 06/12/17 04/17/18 History Metoprolol Tartrate [Lopressor] 25 mg PO BIDWM 06/12/17 04/17/18 History SUMAtriptan succinate [Sumatriptan 50 mg PO BID PRN 06/12/17 04/17/18 History Succinate] Trazodone [Desyrel] 50 - 100 mg PO HS 06/12/17 04/17/18 History Vitamin A 800 unit PO DAILY 06/12/17 04/17/18 History Vitamin E 400 unit PO DAILY 06/12/17 04/17/18 History Ticagrelor [Brilinta] 90 mg PO Q12HR #180 tab 06/13/17 04/17/18 Rx Loperamide HCl/Simethicone 1 tab PO DAILY 06/19/17 04/17/18 History [Imodium Multi-Symptom Rel Cplt] Cholecalciferol (Vitamin D3) 2,000 unit PO DAILY 07/01/17 04/17/18 History [Vitamin D3] Folic Acid 0.8 mg PO DAILY 07/01/17 04/17/18 History Vitamin B Complex Vit C No.4 150 mg PO DAILY 07/01/17 04/17/18 History [Super B Complex] Apixaban [Eliquis] 5 mg PO BID #60 tab 07/02/17 04/17/18 Rx Meclizine [Antivert] 25 mg PO Q6H PRN tab 07/02/17 04/17/18 Rx Omeprazole [Prilosec] 20 mg PO ACB #30 cap 07/02/17 04/17/18 Rx Aspirin [Adult Aspirin] 81 mg PO HS 04/11/18 04/17/18 History METHOTREXATE 2.5mg TAB 15 mg PO WEEKLY 04/11/18 04/17/18 History [Methotrexate] Uceris (Budesonide) 9 mg 9 mg PO DAILY 56 Days #56 each 04/17/18 04/17/18 Rx tablet,delayed and extended release ascorbic acid (vitamin C) 500 mg 500 mg PO DAILY cap 04/17/18 04/17/18 History capsule Allergies Allergy/AdvReac Type Severity Reaction Status Date / Time Sulfa (Sulfonamide Allergy Unknown Rash Verified 04/17/18 10:15 Antibiotics) amoxicillin [From Augmentin] Allergy Diarrhea Verified 04/17/18 10:15 clavulanic acid Allergy Diarrhea Verified 04/17/18 10:15 [From Augmentin] codeine AdvReac Unknown Headache, Verified 04/17/18 10:15 nausea mirtazapine AdvReac Unknown Dizziness Verified 04/17/18 10:15 vortioxetine AdvReac Unknown Nausea Verified 04/17/18 10:15 clindamycin AdvReac Verified 04/17/18 10:15 guaifenesin [From Mucinex D] AdvReac lightheaded, Verified 04/17/18 10:15 "out of control feeling" hydrocodone [From [place]] AdvReac headache, Verified 04/17/18 10:15 nausea pseudoephedrine AdvReac lightheaded, Verified 04/17/18 10:15 [From Mucinex D] "out of control feeling" Exam Vital signs: Temperature 98.2 F 04/11/18 13:18 Pulse Rate 79 04/11/18 13:18 Respiratory Rate 18 04/11/18 13:18 Blood Pressure 130/68 04/11/18 13:18 Pulse Oximetry 97 04/11/18 13:18 - Constitutional no acute distress, obese, cooperative - Routine HEENT Exam Head: Present: normocephalic ENT: Present: mucous membranes dry - Routine Neck Exam Absent: JVD, carotid bruit - Routine Chest/Breast/Axilla Exam Chest wall: Absent: tenderness - Routine Respiratory Exam Present: CTA bilaterally. Absent: dyspnea, rales, wheezes - Routine Cardiovascular Exam Present: RRR, S1, S2, no murmur - Routine Abdominal Exam Present: soft, non tender - Routine Extremities Exam Present: no edema - Routine Skin Exam Present: intact, dry, warm - Routine Neurological Exam Present: alert, oriented X3 - Routine Psychiatric Exam Present: normal affect, normal thought process Results 04/12/18 04:21 04/12/18 04:21 Cardiac Enzymes 04/11/18 Range/Units 10:56 AST 50 H (14-36) U/L Troponin I < 0.012 (0-0.12) ng/ml CBC 04/11/18 Range/Units 10:56 WBC 8.3 (4.5-11.0) T/MM3 RBC 3.72 L (4.00-5.20) M/MM3 Hgb 12.3 (12-16) GM/DL Hct 37.0 (36-46) % Plt Count 298 (130-400) T/MM3 Neut # (Auto) 6.0 (1.8-7.7) T/MM3 Lymph # (Auto) 1.8 (1-4.8) T/MM3 [place] # (Auto) 0.4 (0-0.8) T/MM3 Eos # (Auto) 0.1 (0-0.5) T/MM3 Baso # (Auto) 0.0 (0-0.2) T/MM3 Comprehensive Metabolic Panel 04/11/18 Range/Units 10:56 Sodium 141 (136-146) MEQ/L Potassium 3.6 (3.6-5) MEQ/L Chloride 102 (98-107) MEQ/L Carbon Dioxide 23 (22-30) MEQ/L BUN 25.0 H (7-17) MG/DL Creatinine 1.5 H (0.7-1.2) mg/dL Glucose 101 (65-110) MG/DL Calcium 9.9 (8.4-10.2) MG/DL AST 50 H (14-36) U/L ALT 33 (1-35) U/L Alkaline Phosphatase 40 (38-126) U/L Total Protein 7.9 (6.3-8.2) g/dL Albumin 4.8 (3.5-5.0) g/dL Intake and Output 04/10/18 04/11/18 04/11/18 22:59 06:59 14:59 Intake Total 500 / 500 Balance 500 / 500 Intake: IV 500 / 500 NS 500ml 500 ml @ 999.9 mls/hr 500 / 500 IV .Q30M ONE Rx#:[id number] Other: Weight 190 lb 4.143 oz Patient Weight 04/12/18 06:59 Weight 190 lb 4.143 oz - Imaging and Cardiology Imaging & Cardiology Narrative: Date of Exam: 04/11/18 Ordering Provider: Ryder Salazar DO Type of Exam(s): XR chest 1V Reason for Exam(s): Pain Indication: Chest pain and pressure with shortness of air. PROCEDURE: XR chest 1V: Encounter: Initial Comparison: Chest CT dated July 01, 2017 FINDINGS: The lungs are clear. There is no abnormal airspace opacity, pleural effusion or pneumothorax identified. The heart size, pulmonary vasculature and mediastinum are within normal limits. No significant skeletal abnormality is seen. IMPRESSION: No acute cardiopulmonary abnormality. 04/11/18 13:53 EKG interpretations - EKG EKG results cardiology: sinus rhythm EKG shows: tachycardia - Dysrhythmias Ventricular dysrhythmias: ventricular premature complexes (occasional) - Blocks, axis, hypertrophy, ST abn Repolarization changes or abnormalities: nonspecific abnormality, ST segment, and/or T wave Hospital Course This is a general summary of the patient's hospital course. For more details refer to the complete medical record. Time spent with patient: 25 - 35 minutes Resuscitation Status: Full Code Assessment and Plan - Attestation Attestation Narrative: 04/19/18 09:46 Recommendation After examining the patient I agree with the above assessment. I am involved in the formulation of the patient's plan of care.
[2018-04-11] MEDS ORDERED: FEXOFENADINE PO PRN (15:54)
[2018-04-11] MEDS ORDERED: SUMATRIPTAN 25 MG TABLET PO PRN (15:54)
[2018-04-11] MEDS ORDERED: PSE PO PRN (15:54)
[2018-04-11] MEDS ORDERED: MECLIZINE 25 MG TABLET PO PRN (15:54)
[2018-04-11] MEDS ORDERED: TRAZODONE 50 MG TABLET PO PRN (16:18)
[2018-04-11] MEDS: TICAGRELOR 90 MG TABLET PO SCH (20:34)
[2018-04-11] MEDS: APIXABAN 5 MG TABLET PO SCH (20:55)
[2018-04-11] MEDS ORDERED: ACETAMINOPHEN 325 MG TABLET PO PRN (20:56)
[2018-04-11] MEDS ORDERED: TRAZODONE 50 MG TABLET PO SCH (21:00)
[2018-04-11] MEDS ORDERED: ATORVASTATIN 10 MG TABLET PO SCH (21:00)
[2018-04-11] MEDS ORDERED: ASPIRIN *EC* 81 MG TABLET PO SCH (21:00)
[2018-04-12] MEDS ORDERED: NS 1,000 ML IV SCH (06:00)
[2018-04-12] MEDS ORDERED: OMEPRAZOLE 20 MG CAPSULE PO SCH (06:30)
[2018-04-12] MEDS: TICAGRELOR 90 MG TABLET PO SCH (08:03)
[2018-04-12] MEDS: APIXABAN 5 MG TABLET PO SCH (08:03)
[2018-04-12] MEDS ORDERED: VITAMIN A PO SCH (09:00)
[2018-04-12] MEDS ORDERED: ASCORBIC ACID 500 MG TABLET PO SCH (09:00)
[2018-04-12] MEDS ORDERED: FLUoxetine 20 MG CAPSULE PO SCH (09:00)
[2018-04-12] MEDS ORDERED: VITAMIN B COMPLEX + C TABLET PO SCH (09:00)
[2018-04-12] MEDS ORDERED: SIMETHICONE 80 MG CHEWABLE TABLET PO SCH (09:00)
[2018-04-12] MEDS ORDERED: LOPERAMIDE 2 MG CAPSULE PO SCH (09:00)
[2018-04-12] MEDS ORDERED: LISINOPRIL/HCTZ 20/25 MG TABLET PO SCH (09:00)
[2018-04-12] MEDS ORDERED: VITAMIN E 400 UNIT CAPSULE PO SCH (09:00)
[2018-04-12] MEDS ORDERED: FOLIC ACID 1 MG TABLET PO SCH (09:00)
--- NOTE | 2018-04-12 15:54 | Discharge Summary ---
<Isamar Donaldson - Last Filed: 04/12/18 15:50> Discharge Information Date of admission: 04/11/18 12:40 Anticipated date of discharge: 04/12/18 Attending Physician: Germán Wiggins MD Primary care physician: Sarmad Tan MD - Discharge Diagnosis (1) Chest pain Status: Acute (2) Atherosclerotic heart disease of [place] coronary artery without angina pectoris Status: Chronic (3) Ventricular premature depolarization Status: Chronic (4) Essential (primary) hypertension Status: Chronic (5) Mixed hyperlipidemia Status: Chronic (6) History of pulmonary embolus (PE) Status: Chronic precordial pain, CAD, HTN, HLD - Laboratory Labs: 04/12/18 04:21 04/12/18 04:21 History of Present Illness HPI: Nubia is a 67 year old female who is known to Dr. Wiggins with a history of CAD with DEBBIE to the LAD 06/2017, Bilateral PE about 3 weeks later, and GI bleed the following month, PVCs, HTN and HLD who presented to the ED with chest pain/ pressure this am. 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 She thinks she may have been a little dehydrated as well. EKG showed sinus tach, HR 101 with occasional PVCs and nonspecific ST-T changes. Initial troponin is negative. Dr. Wiggins is contacted for admission to Surgical for observation and further evaluation. Hospital Course This is a general summary of the patient's hospital course. For more details refer to the complete medical record. Hospital course: Chest pain Current visit: Yes Status: Acute Chest pressure, associated with SOA while outside working in yard - Not likely cardiac ischemia due to recent stent in only lesion - Patient is on VALENTE as well as chronic anticoagulation due to history of PE - EKG: sinus tach, HR 101, occasional PVCs, ST depression - Repeat EKG SR, minimal ST depression - Trend serial troponin levels, negative X2 so far - NPO after 0600 in case of LHC tomorrow afternoon. Atherosclerotic heart disease of [place] coronary artery without angina pectoris Current visit: Yes Status: Chronic DEBBIE to LAD 06/2017, no other lesions on HC - Continue Aspirin, Brilinta, Statin, BB and ACEI Ventricular premature depolarization Current visit: No Status: Chronic Occasional PVCs, asymptomatic - continue to monitor telemetry Essential (primary) hypertension Current visit: No Status: Chronic Well controlled on current therapy - Continue BB, ACEI/ HCTZ Mixed hyperlipidemia Current visit: No Status: Chronic - Continue Statin therapy, PCP manages History of pulmonary embolus (PE) Current visit: Yes Status: Chronic 04/12/18 Troponin levels negative X4 - EKG remains SR without ischemic changes - Will plan outpatient stress test with follow up with Dr. Wiggins for results Time spent with patient: 25 - 35 minutes Resuscitation Status: Full Code Exam Vital signs: Temperature 97.6 F 04/12/18 07:45 Pulse Rate 66 04/12/18 07:46 Respiratory Rate 18 04/12/18 07:45 Blood Pressure 105/65 04/12/18 07:45 Pulse Oximetry 96 04/12/18 07:45 - Constitutional no acute distress, well nourished, cooperative - Routine HEENT Exam Head: Present: normocephalic ENT: Present: mucous membranes moist - Routine Neck Exam Absent: JVD, carotid bruit - Routine Chest/Breast/Axilla Exam Chest wall: Absent: tenderness - Routine Respiratory Exam Present: CTA bilaterally. Absent: dyspnea, rales, wheezes - Routine Cardiovascular Exam Present: RRR, no murmur - Routine Abdominal Exam Present: soft, non tender - Routine Extremities Exam Present: no edema - Routine Skin Exam Present: intact, dry, warm - Routine Neurological Exam Present: alert, oriented X3 - Routine Psychiatric Exam Present: normal affect, normal thought process Results 04/12/18 04:21 04/12/18 04:21 Cardiac Enzymes 04/11/18 04/11/18 04/12/18 Range/Units 16:11 22:01 04:21 Troponin I < 0.012 < 0.012 < 0.012 (0-0.12) ng/ml CBC 04/12/18 Range/Units 04:21 WBC 6.7 (4.5-11.0) T/MM3 RBC 3.29 L (4.00-5.20) M/MM3 Hgb 10.8 L D (12-16) GM/DL Hct 32.9 L D (36-46) % Plt Count 267 (130-400) T/MM3 Neut # (Auto) 2.6 (1.8-7.7) T/MM3 Lymph # (Auto) 3.4 (1-4.8) T/MM3 Coffee # (Auto) 0.5 (0-0.8) T/MM3 Eos # (Auto) 0.2 (0-0.5) T/MM3 Baso # (Auto) 0.0 (0-0.2) T/MM3 Comprehensive Metabolic Panel 04/11/18 04/12/18 Range/Units 16:11 04:21 Sodium 142 143 (136-146) MEQ/L Potassium 3.3 L 3.4 L (3.6-5) MEQ/L Chloride 104 104 (98-107) MEQ/L Carbon Dioxide 28 27 (22-30) MEQ/L BUN 23.0 H 22.0 H (7-17) MG/DL Creatinine 1.2 D 1.1 (0.7-1.2) mg/dL Glucose 91 95 (65-110) MG/DL Calcium 9.5 9.3 (8.4-10.2) MG/DL Intake and Output 04/12/18 04/12/18 04/12/18 06:59 14:59 22:59 Intake Total 400 / 400 Output Total 1100 / 1100 400 / 400 Balance -700 / -700 -400 / -400 Intake: Oral 400 / 400 Output: Urine 1100 / 1100 400 / 400 Other: Urine Appearance Clear Clear Urine Color Yellow Bright Yellow Normal for Patient Urine Odor Normal Stool Color Brown Stool Consistency Soft Size of Bowel Movement Small # Voids 1 # Bowel Movements 1 Weight 191 lb 9.307 oz Patient Weight 04/13/18 06:59 Weight 191 lb 9.307 oz - Imaging and Cardiology Imaging & Cardiology Narrative: Date of Exam: 04/11/18 Ordering Provider: Ryder Salazar DO Type of Exam(s): XR chest 1V Reason for Exam(s): Pain Indication: Chest pain and pressure with shortness of air. PROCEDURE: XR chest 1V: Encounter: Initial Comparison: Chest CT dated July 01, 2017 FINDINGS: The lungs are clear. There is no abnormal airspace opacity, pleural effusion or pneumothorax identified. The heart size, pulmonary vasculature and mediastinum are within normal limits. No significant skeletal abnormality is seen. IMPRESSION: No acute cardiopulmonary abnormality. . 04/12/18 15:51 Discharge Plan - Med Rec/Dispo Referrals/Follow Up: Germán Wiggins MD [Physician] - 3 Weeks [facility] Instructions: Chest Pain (DC), Dehydration (DC) Prescriptions: Continue Lisinopril/Hctz 20/25 [Prinzide 20/25] 1 tab PO DAILY #0 Vitamin A 800 unit PO DAILY Trazodone [Desyrel] 50 - 100 mg PO HS Fluoxetine HCl [Prozac] 40 mg PO DAILY Metoprolol Tartrate [Lopressor] 25 mg PO BIDWM Atorvastatin [Lipitor] 5 mg PO HS Fexofenadine/Pseudoephedrine [Irene-D 24 Hour Tablet] 1 tab PO DAILY PRN PRN Reason: Prn Orders Ticagrelor [Brilinta] 90 mg PO Q12HR #180 tab Loperamide HCl/Simethicone [Imodium Multi-Symptom Rel Cplt] 1 tab PO DAILY Vitamin B Complex Vit C No.4 [Super B Complex] 150 mg PO DAILY Cholecalciferol (Vitamin D3) [Vitamin D3] 2,000 unit PO DAILY Omeprazole [Prilosec] 20 mg PO ACB #30 cap Aspirin [Adult Aspirin] 81 mg PO HS METHOTREXATE 2.5mg TAB [Methotrexate] 15 mg PO WEEKLY Infliximab [Remicade] 800 mg IV Q 4 WEEKS #0 Vitamin E 400 unit PO DAILY SUMAtriptan succinate [Sumatriptan Succinate] 50 mg PO BID PRN PRN Reason: Migraine Headache Folic Acid 0.8 mg PO DAILY Apixaban [Eliquis] 5 mg PO BID #60 tab Meclizine [Antivert] 25 mg PO Q6H PRN tab PRN Reason: dizziness No Action Uceris (Budesonide) 9 mg tablet,delayed and extended release 9 mg PO DAILY 56 Days #56 each ascorbic acid (vitamin C) 500 mg capsule 500 mg PO DAILY cap - Disposition 01 Discharged Home, Self-Care - Dismissal Complete Discharge Instructions are:: Complete <Germán Wiggins - Last Filed: 04/19/18 10:25> Discharge Information Date of admission: 04/11/18 12:40 Attending Physician: Germán Wiggins MD Primary care physician: Sarmad Tan MD - Discharge Diagnosis (1) Ventricular premature depolarization Status: Chronic (2) Essential (primary) hypertension Status: Chronic (3) Mixed hyperlipidemia Status: Chronic (4) Chest pain Status: Acute (5) Atherosclerotic heart disease of [place] coronary artery without angina pectoris Status: Chronic (6) History of pulmonary embolus (PE) Status: Chronic - Laboratory Labs: 04/12/18 04:21 04/12/18 04:21 Hospital Course This is a general summary of the patient's hospital course. For more details refer to the complete medical record. Exam Vital signs: Temperature 98.1 F 04/12/18 15:00 Pulse Rate 64 04/12/18 16:19 Respiratory Rate 22 04/12/18 15:00 Blood Pressure 107/54 04/12/18 15:00 Pulse Oximetry 93 04/12/18 15:00 Results 04/12/18 04:21 04/12/18 04:21 Attestation Narriative - Attestation Attestation Narrative: 04/19/18 10:25 Recommendation After examining the patient I agree with the above assessment. I am involved in the formulation of the patient's plan of care.
[2018-04-12 16:17] VITALS: BP 107/54; RESP 22; TEMP 98.1; O2SAT 93
[2018-04-12 16:21] VITALS: PULSE 64
[2018-04-14] MEDS ORDERED: METHOTREXATE 2.5MG TABLET PO SCH (09:00)
== END 2018-04-12 16:45 | disposition home or self-care (01) ==
LOC: EDHOLD 10:31 → ED 10:31 → SRG 13:00
PROVIDERS: ADMIT Internal Medicine Cardiovascular Disease; ATTEND Internal Medicine Cardiovascular Disease